=== PATIENT | female | born 1940 | race Caucasian/White ===

== ENCOUNTER 2016-12-10 23:37 | Emergency (ER) | payer MEDICARE, MEDICAID ==
[~2016-12-10 23:37] MED LIST: ABH GEL TP; ACET325C PO; ALBU2.5V4 INHALATION; AMLO2.5T PO; CALC500T9 PO; CHOL40003 PO; CITA20TA11 PO; CLOB15CR3 TOP; CYCL1DRO BOTH_EYES; DEXT1CAP3 PO; DONE10TA5 PO; DPAS20025 PO; FENT1PAT6 TRANSDERM; FLUT9.9S NS; FOLI1TAB18 PO; FRNCD30C PO; GABA-502 PO; GUAI-844 PO; HYDR200T5 PO; HYDR30CR98 RC; KETACONAZOLE CREAM TP; LAMO200T2 PO; LATA2.5D6 BOTH_EYES; LEVO125T6 PO; LOPE1TAB13 PO; MAGN400T23 PO; MICO5POW6 TOPICAL; MINE105O TP; NYST1POW23 MC; PANT20T PO; POLY17PO6 PO; PROP10TA8 PO; SENN-133 PO; SODI126M NS; THIA100T64 PO; TRAM50TA2 PO; TRAZ-115 PO; [UNRECOGNIZED DRUG - OTHER] PO
[2016-12-10 23:38] VITALS: BP 160/75; PULSE 58; O2SAT 91
--- NOTE | 2016-12-10 23:59 | ED.REPORT ---
HPI-Head Prob / Injury Date of Service Dec 10, 2016 ED Provider: Malcom Morgan MD A 76 year old female with a history of cerebral vascular disease, dementia, hypertension, hyperlipidemia and iron-deficient anemia presents to the ED via EMS from a senior care complaining of a headache secondary to a ground level fall that occurred just prior to arrival. Patient remembers being in bed just prior to the fall. She believes she hit her head during the fall. Patient is currently taking dipyridamole. She is currently complaining of right rib pain and back pain that feels similar to her chronic back pain. She denies any neck pain, abdominal pain, change in mental status. Nursing Notes Stated Complaint: GLF Chief Complaint: Head, Face, Neck Trauma Nursing Notes Reviewed: Yes Allergies: Coded Allergies: Oxycodone Terephthalate (Verified Allergy, Severe, RASH, 08/02/16) Sulfa (Sulfonamide Antibiotics) (Verified Allergy, Severe, hives, 08/02/16) acetaminophen (Verified Allergy, Severe, RASH (FROM OXYCODONE-PT TAKING TYLENOL W/O PROBLEMS), 08/02/16) aspirin (Verified Allergy, Severe, RASH, 08/02/16) codeine (Verified Allergy, Severe, rash, hives, 08/02/16) oxycodone (Verified Allergy, Severe, rash, 08/02/16) Erythromycin Lactobionate (Verified Allergy, Unknown, UNKNOWN, 08/02/16) lactose (Verified Allergy, Unknown, UNKNOWN, 08/02/16) morphine (Verified Allergy, Unknown, UNKNOWN, 08/02/16) zolpidem (Verified Allergy, Unknown, UNKNOWN, 08/02/16) hydromorphone HCl (Verified Adverse Reaction, Severe, Hallucinations, 08/02) meperidine (Verified Adverse Reaction, Severe, hallucinations, 08/02/16) mirabegron (Verified Adverse Reaction, Severe, BEHAVIORAL CHANGES, 08/02/16 ) omeprazole (Verified Adverse Reaction, Severe, DIARRHEA, 08/02/16) oxycodone HCl (Verified Adverse Reaction, Severe, makes her high, 08/02/16) simvastatin (Verified Adverse Reaction, Severe, MYALGIAS, 08/02/16) Uncoded Allergies: PHOSPHATE (Allergy, Unknown, UNKNOWN, 08/02/16) Scheduled ([Easy Fiber Powder]) 1 OZ PO PRN ([Ketaconazole Cream]) 1 APPLIC TP BID Amlodipine (Amlodipine) 2.5 Mg Tablet 2.5 MG PO DAILY Cholecalciferol (Vitamin D3) (Vitamin D3) 4,000 Unit Capsule 4,000 UNIT PO DAILY Citalopram (Citalopram) 20 Mg Tablet 20 MG PO DAILY Clobetasol Propionate/Emoll (Clobetasol Emollient 0.05% Crm) 15 Gm Cream..g. 1 APPL TOP BID Cyclosporine (Restasis) 1 Each Droperette 1 EACH AFFECT_EYE BID Dextromethorphan HBr/Quinidine (Nuedexta 20-10 mg Capsule) 1 Each Capsule 1 EACH PO BID Dipyridamole/Aspirin 200-25 mg (Aggrenox 200-25 mg) 1 Each Capsule 1 CAPSULE PO BID Donepezil (Aricept) 10 Mg Tablet 10 MG PO HS Fentanyl 12.5 mcg/hr Patch (Fentanyl 12.5 mcg/hr Patch) 1 Each Patch.td72 1 PATCH TRANSDERM Q3D Fluticasone Propionate (Flonase Allergy Relief) 50 Mcg/Actuation Dracut.susp 9.9 ML NS DAILY Folic Acid (Folic Acid) 1 Mg Tablet 1 MG PO DAILY Gabapentin (Gabapentin) 300 Mg Capsule 300 MG PO BID Hydrocortisone (Hydrocortisone) 2.5 % Cream.appl 30 GM RC BID Hydroxychloroquine Sulfate (Hydroxychloroquine Sulfate) 200 Mg Tablet 200 MG PO DAILY Lamotrigine (Lamotrigine) 200 Mg Tablet 200 MG PO BID Latanoprost (Latanoprost) 2.5 Ml Drops 1 GTT AFFECT_EYE HS Levothyroxine (Levothyroxine) 125 Mcg Tablet 125 MCG PO DAILY Loperamide/Simethicone (Imodium Multi-Symptom Rel Cplt) 1 Each Tablet 1 EACH PO PRN Magnesium Oxide (Mag-Oxide) 400 Mg Tablet 400 MG PO DAILY Magnesium Oxide (Mag-Oxide) 400 Mg Tablet 250 MG PO BID Miconazole (Miconazole) 5 Gm Powder 5 GM MC PRN Mineral Oil/Pet Hy-Phl (Aquaphor) 1 Applic/Gm Oint 1 APPLIC TP PRN Nystatin (Nystatin) 1 Each Powder.ea. 1 EACH MC BID Pantoprazole DR (Protonix) 20 Mg Tablet 20 MG PO DAILY Propranolol HCl (Propranolol HCl) 10 Mg Tablet 10 MG PO BID Sodium Chloride (Saline Nasal Mist) 126 Ml Mist 1 SPRAYS NS PRN Thiamine Mononitrate (Vitamin B-1) 100 Mg Tablet 100 MG PO DAILY Trazodone (Trazodone) 50 Mg Tablet 50 MG PO HS Scheduled PRN ([Abh Gel]) 1 ML TP Q6H PRN PRN PRN FOR DELUSIONS Acetaminophen (Acetaminophen) 325 Mg Capsule 325-650 MG PO Q4H PRN PRN PRN Albuterol Neb Soln (Albuterol Neb Soln) 2.5 Mg/3 Ml Vial.neb 2.5 MG INHALATION Q4H PRN PRN For Shortness of Breath Butalbital/ASA/Caff/Cod 54-766-71-30 mg (Fiorinal/Codeine 53-486-52-30 mg) 1 Each Capsule 1 CAPSULE PO Q4H PRN PRN For Headache Calcium Carbonate (Tums) 500 Mg Tab.chew 500 MG PO Q4H PRN PRN For Dyspepsia or Heartburn Guaifenesin/Dextromethorphan (Ofe-Tussin Dm Syrup) 100 Mg-10 Mg/5 Ml Syrup 10 ML PO Q6H PRN PRN PRN Polyethylene Glycol 3350 (Miralax) 17 Gm Powd.pack 17 GM PO DAILY PRN PRN PRN Sennosides (Senna) 8.6 Mg Tablet 17.2 MG PO DAILY PRN PRN For Constipation Tramadol (Tramadol) 50 Mg Tablet 50 MG PO Q6H PRN PRN For Pain General Time Seen by Provider: 00:01 Chief Complaint Other (Headache) Hx Obtained From: Patient, Daughter Arrived By: Ambulance Onset Occurred: Just prior to arrival Symptom Duration: Since onset Progression Since Onset: Unchanged Caused by: Fall out of bed Quality: Aching Severity: Current: Mild Severity: Maximum: Mild Associated with: Reports: Headache, Denies: Confusion, Disorientation, Mood change, Neck pain Pertinent Negative: Pt denies other symptoms Recent Healthcare: No recent doctor visit, No recent hospitalization Risk-Head Prob / Injury )( IC Bleed Risk Strat Age (<1 yr or >60 yrs) Blood thinners RF Statements: Risk factors reviewed Head CT Imaging Inclusion Criteria: >/= 16 yo age Past Medical History Past Medical History Cerebral vascular disease Iron deficiency anemia Reports: GERD, Hyperlipidemia, Hypertension Reports: Dementia, Depression, Glaucoma Past Surgical History Laminectomy Bladder sling Hemorrhoid surgery Reports: Appendectomy, Cataract surgery, Cholecystectomy, Hysterectomy Family History strong history of CAD, son in his 40's. Smoking History Former Smoker Social History Alcohol Use: Denies alcohol use Drug Use: Denies drug use Other Social History: Good social support, Lives in senior care Ambulatory Status Independent Review of Systems Constitutional: Denies: Chills, Fever GI: Denies: Abdominal pain, Nausea, Vomiting Musculoskeletal: Reports: Back pain (chronic ), Denies: Neck pain Neurologic: Reports: Headache, Denies: Confusion Complete sys rev & neg: except as marked. Respiratory: Denies: Shortness of breath Psychiatric: Denies: Change mental status Physical Exam Initial Vital Signs Vital Signs (First) Date Time Temp Pulse Resp B/P Pulse Ox O2 Delivery O2 Flow Rate FiO2 12/10/16 23:38 36.7 58 160/75 91 Room Air 12/11/16 02:00 18 Initial VS: Reviewed, Vital signs normal Extremities: Vascular intact, Neuro intact, No swelling, No tenderness Skin: Warm, Dry, No cyanosis Psychiatric: Mood/affect normal, Behavior normal, Normal thought content General/Constitutional: Awake, Alert Head / Eyes: Normocephalic, PERRL Trauma - General: Positive: Abrasion (abrasion to the right forehead ) ENT: Atraumatic, Airway patent Neck: Atraumatic, Supple, Non-tender Neurologic: Oriented X3, Speech NL, No motor deficits, No sensory deficits Respiratory / Chest: Atraumatic, Breath sounds NL, Breath sounds = bilat RESPIRATORY/CHEST: Bony tenderness and crepitus to the anterior axillary margin of the right rib Cardiovascular: Heart rate NL, Regular rhythm, Heart sounds NL Upper Extremity / MS: Atraumatic, Neurologic intact, Vascular intact Lower Extremity / Pelvis / MS: Atraumatic, Inspection NL, Non-tender, Neurologic intact, Vascular intact Right Hip: Negative: Tenderness present... Left Hip: Negative: Tenderness present... Abdomen: Atraumatic, Soft, Non-tender Interpretation & Diagnostics Lab Results Interpretation Result Diagram: 12/11/16 0339 12/11/16 0339 Test 12/11/16 03:38 12/11/16 03:39 Hold Urine Received (Received) White Blood Count 7.4th/mm3 (3.8-10.1) Red Blood Count 4.19mil/mm3 (3.90-5.20) Hemoglobin 13.1g/dL (12.0-15.6) Hematocrit 40.1% (35.0-46.0) Mean Corpuscular Volume 95.7fL (81-100) Mean Corpuscular Hemoglobin 31.3pg (27.0-35.0) Mean Corpuscular Hemoglobin Concent 32.7% (32.0-37.0) Red Cell Distribution Width 13.1% (12.3-15.4) Platelet Count 219bil/L (150-400) Neutrophils (%) (Auto) 48.7% (40-74) Lymphocytes (%) (Auto) 33.7% (14-46) Monocytes (%) (Auto) 11.9% (4-12) Eosinophils (%) (Auto) 5.0% (0-5) Basophils (%) (Auto) 0.4% (0-3) Sodium Level 143mEq/L (134-144) Potassium Level 4.1mEq/L (3.5-5.2) Chloride Level 101mEq/L (97-108) Carbon Dioxide Level 27mmol/L (18-29) Blood Urea Nitrogen 7mg/dL (8-27) Creatinine 0.65mg/dL (0.57-1.00) Estimat Glomerular Filtration Rate 127mL/min (>59) Glucose Level 98mg/dL (60-99) Calcium Level 9.0mg/dL (8.5-10.1) Magnesium Level 1.9mg/dL (1.6-2.6) Total Bilirubin 0.5mg/dL (0.0-1.2) Aspartate Amino Transf (AST/SGOT) 21U/L (0-50) Alanine Aminotransferase (ALT/SGPT) 10U/L (0-32) Alkaline Phosphatase 96U/L (25-165) Troponin T 0.010ug/L (0.0-0.011) Total Protein 6.3g/dL (6.4-8.4) Albumin 3.8g/dL (3.4-5.0) Hold Bashir Top Tube Received (Received) Lab Results Interpretation: Urine Dip SP Lamoni 1.005 pH 8 ECG Interpretation ECG Interpretation: Sinus Rhythm Rate 61 Time: 01:53 Interpreted by: ED physician X-Ray Chest Interpretation Chest Xray Interpretation: IMPRESSION: Widened mediastinum compared to previous Interpretation / Wet Read by: Wet read ED physician CT Head Interpretation IMPRESSION: Moderate patchy low density bilaterally in the deep white matter likely due to chronic ischemic small vessel disease. No acute intracranial abnormality. 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 Study type: CT pulm angiogram Interpretation / Wet Read by: Interpret - Radiologist ([facility]) Re-Eval/Medical Decision Med Decision/Clinical Course 76-year-old female who apparently fell out of bed. She was found beside her bed on the floor. She has a small abrasion on her left forehead. CT scan of her head is negative. She also had some pain in her right side so an x-ray was done. This showed a widened mediastinum compared to previous x-rays so full laboratory evaluation and the CT angiogram of the chest were done. The only finding was a nondisplaced fracture of the 10th rib on the right side. Being discharged back to [facility]. Re-Evaluation/Progress #1: Time of Eval: 01:34 Patient Status: Condition improved Re-Evaluation/Progress Note: Patient is rechecked. She is informed of her X-ray results and the treatment plan to obtain a chest CT scan. Re-Evaluation/Progress #2: Time of Eval: 05:48 Patient Status: Condition improved Re-Evaluation/Progress Note: atient is rechecked. She is informed of her reassuing EKG results, lab results and CT results. All of the patient's questions are adressed. She understands and agrees with the treatment plan to discharge. Counseled Regarding: Diagnosis, Lab results, Need for follow-up, When/why to return to ED Discharge & Departure Primary Impression: Fracture of rib of right side Encounter type: initial encounter Rib fracture type: single rib Fracture type: closed Qualified Code: S22.31XA - Fracture of one rib, right side, initial encounter for closed fracture Additional Impression: Fall from ground level Disposition: Home All VS Reviewed: Yes Condition: Stable Patient Instructions: Fall Prevention for Older Adults (GEN), Rib Fracture (ED) Additional Instructions: You have a nondisplaced fracture of the right 10th rib. No other abnormalities are seen on your x-rays and CAT scan. Referrals: Albert Johns MD (PCP) Scribe Attestation Portions of this note were transcribed by Richmond Ryder. I, Dr. Morgan personally performed the history, physical exam and medical decision-making; I reviewed and confirmed the accuracy of the information in the transcribed note. Signed by: Wendy Vidal, 12/11/16 0600. copies to: Albert Jonhs MD, Howard L MD Dec 10, 2016 23:59 RICHMOND RYDER Dec 11, 2016 00:08
[2016-12-11] MEDS ORDERED: 0.9% Sodium Chloride 1,000 ML IV ONE (01:36)
[2016-12-11 02:00] VITALS: BP 150/80; PULSE 60; RESP 18; O2SAT 92
[2016-12-11 03:53] LABS: BASOPHILS % (AUTO) 0.4 % (0-3); MONOCYTES % (AUTO) 11.9 % (4-12); Mean Corpuscular Hemoglobin 31.3 pg (27.0-35.0); Mean Corpuscular Volume 95.7 fL (81-100); NEUTROPHILS % (AUTO) 48.7 % (40-74); Platelet Count 219 bil/L (150-400)
[2016-12-11 04:42] LABS: TROPONIN T 0.01 ug/L (0.0-0.011)
[2016-12-11 04:47] LABS: Magnesium 1.9 mg/dL (1.6-2.6)
[2016-12-11 05:17] VITALS: BP 138/55; PULSE 66; RESP 20; O2SAT 93
[2016-12-11] MEDS ORDERED: NYST15PO5 TP (06:42)
--- NOTE | 2016-12-11 07:38 | DRSVH ---
PROCEDURE: CT ANGIOGRAPHY OF THE CHEST WITH AND WITHOUT CONTRAST ([id number]) INDICATIONS: syncope, fall TECHNIQUE: After the administration of intravenous contrast, 3 mm thick sections acquired from the lung apices t o the posterior lung bases. 3-dimensional maximum intensity projection (MIP) oblique sagittal reform ats were then acquired parallel to the aortic arch, and/or 3-dimensional volume rendering reformats. For radiation dose reduction, the following was used: automated exposure control. COMPARISON: None. FINDINGS: Image quality: Excellent. Aorta: Aorta and great vessels are normal in size. No mural irregularity or contrast extravasation to suggest aortic injury. Mild atheromatous calcifications are present within the descending thoracic aorta. Mediastinum: No hematomas. Heart size is normal. No pericardial effusion. No mediastinal or hilar adenopathy by size criteria. Central pulmonary arteries are normal in size. Esophagus is normal in caliber. There is a small hiatal hernia. Lungs and pleura: Mild atelectasis is present at the dependent lung bases bilaterally. Trace airspace opacities are present within the anterior right upper lobe. Bones and chest wall: No axillary adenopathy by size criteria. Thyroid gland is not visualized. The re is a minimally displaced right lateral 10th rib fracture. No suspicious bony lesions. No vertebral body compression fractures. Abdomen: There is likely extrinsic compression of the superior aspect of the origin of the celiac ax is with resultant moderate stenosis. This finding can be associated with median arcuate ligament synd hazel. Visualized upper abdominal solid organs and bowel loops appear otherwise normal. IMPRESSION: 1. No thoracic aortic aneurysm, dissection, or injury. 2. Minimally displaced lateral right 10th rib fracture. These findings are concordant with the overnight interpretation. Dictated by: Johanna Llamas M.D. on 12/11/2016 at 7:23 Approved by: Johanna Llamas M.D. on 12/11/2016 at 7:36
--- NOTE | 2016-12-11 07:46 | DRSVH ---
PROCEDURE: CT BRAIN WITHOUT CONTRAST ([id number]) INDICATIONS: fall, head trauma TECHNIQUE: Noncontrast 4.5 mm thick angled axial sections acquired from the foramen magnum to the vertex, with c oronal reformats. COMPARISON: [facility], CT, BRAIN W/O CONTRAST, 06/16/2013, 14:38. FINDINGS: Image quality: Excellent. CSF spaces: Basal cisterns are patent. No extra-axial fluid collections. The ventricles are symmet mendy in size and shape. Brain: No intracranial bleeds or masses. There is moderate cerebral volume loss for age, with resul tant ventricular and sulcal prominence. There are periventricular and deep white matter chronic smal l vessel ischemic changes. There are old bilateral basal ganglia lacunar infarcts. There is intracran ial internal carotid artery atherosclerosis. Skull and face: Calvarium and visualized facial bones appear intact, without suspicious lesions. Sinuses: Visualized sinuses and mastoids are clear. IMPRESSION: 1. No acute intracranial findings. 2. Moderate findings likely associated with chronic microvascular ischemic changes and old basal gang greg infarcts. These findings are concordant with the overnight interpretation. Dictated by: Johanna Llamas M.D. on 12/11/2016 at 7:41 Approved by: Johanna Llamas M.D. on 12/11/2016 at 7:44
--- NOTE | 2016-12-11 07:55 | DRSVH ---
PROCEDURE: X-RAY RIGHT RIBS INCLUDEING PA CHEST, MINUMUM THREE VIEWS ([id number]) INDICATIONS: fall, right rib pain and crepitus TECHNIQUE: 3 views of the right ribs were acquired, along with a single view chest. COMPARISON: None. FINDINGS: Surgical changes and devices: Multiple surgical clips are projected over the right upper quadrant. Bones and chest wall: There is a minimally displaced lateral right 10th rib fracture. Lungs and pleura: No pleural effusions or pneumothorax. Lungs appear clear. Mediastinum: Mediastinal contours appear normal. Heart size is normal. IMPRESSION: Minimally displaced lateral right 10th rib fracture. No pneumothorax or pleural effusion. Dictated by: Johanna Llamas M.D. on 12/11/2016 at 7:44 Approved by: Johanna Llamas M.D. on 12/11/2016 at 7:53
[2016-12-11 08:07] VITALS: BP 157/63; PULSE 60; RESP 10; O2SAT 95
--- NOTE | 2016-12-20 10:08 | PCM.ANEPRE ---
Anesthesia Pre-Op Review Reason for Review: Recent rib fracture Anesthesia Recommendations: Proceed with Procedure Additional Comments Please see prior consultation and anesthesia record from 08/2016. She underwent a GA for the same procedure as scheduled for tomorrow. Evaluation on day or surgery with anesthesiologist regarding pain intensity from rib fracture. I assume that the patient and surgeon have spoken regarding said rib fracture and both feel comfortable proceeding. Sebas Fragoso MD Dec 20, 2016 10:08
[2016-12-21] MEDS ORDERED: Lactated Ringer's 1,000 ML IV SCH (05:00)
== END 2016-12-11 05:57 | disposition home or self-care (01) ==
LOC: SED 23:37
DX: S22.31XA Fracture of one rib, right side, initial encounter for closed fracture (principal); W06.XXXA Fall from bed, initial encounter; Y93.89 Activity, other specified; Y99.8 Other external cause status; Y92.122 Bedroom in nursing home as the place of occurrence of the external cause; I10 Essential (primary) hypertension; K21.9 Gastro-esophageal reflux disease without esophagitis; E78.5 Hyperlipidemia, unspecified; D50.9 Iron deficiency anemia, unspecified; Z87.891 Personal history of nicotine dependence; Z86.73 Personal history of transient ischemic attack (TIA), and cerebral infarction without residual deficits; Z79.51 Long term (current) use of inhaled steroids; Z88.6 Allergy status to analgesic agent; Z88.2 Allergy status to sulfonamides; Z88.5 Allergy status to narcotic agent; Z88.1 Allergy status to other antibiotic agents; Z88.8 Allergy status to other drugs, medicaments and biological substances
CPT/HCPCS: 36415; 70450; 71101; 71275; 80053; 83735; 84484; 85025; 93005; 96360; 99285; J7030; Q9967

== ENCOUNTER 2016-12-21 05:40 | Day surgery (SDC) | payer MEDICARE, MEDICAID ==
[2016-12-21] VITALS (8 sets, daily range): BP systolic 138–148; BP diastolic 54–118; PULSE 56–58; RESP 9–19; O2SAT 97–100
[~2016-12-21] VITALS: Ht 162.6 cm; Wt 75.5 kg
[~2016-12-21 05:40] MED LIST changes: +Botulinum Toxin Type-A Inj 200 unit Inj XX ONE; +Lactated Ringer's 1,000 ML IV SCH; +NYST15PO5 TP
[2016-12-21] MEDS ORDERED: Ondansetron 2 mg/mL 2 mL Inj ONE (05:41)
[2016-12-21] MEDS ORDERED: Propofol 10,000 mCg/mL 20 mL Inj ONE (05:41)
[2016-12-21] MEDS ORDERED: fentaNYL-PF 50 mCg/mL 2 mL Inj ONE (05:41)
[2016-12-21] MEDS ORDERED: Dexamethasone 4 mg/mL Inj ONE (05:41)
[2016-12-21] MEDS ORDERED: Botulinum Toxin Type-A 100 unit Inj IM ONE (06:00)
[2016-12-21] MEDS ORDERED: Lactated Ringer's 1,000 ML IV ONE ×3 (08:01→09:18)
[2016-12-21] MEDS: CeFAZolin Inj 2 GM in IV Premix 1 EACH IV ONE ×2 (08:02→08:24)
[2016-12-21] MEDS ORDERED: Lactated Ringer's 500 ML IV PRN (08:33)
[2016-12-21] MEDS ORDERED: Lactated Ringer's 1,000 ML IV SCH (08:33)
[2016-12-21] MEDS ORDERED: fentaNYL-PF 50 mCg/mL 2 mL Inj IVPUSH PRN (08:35)
[2016-12-21] MEDS ORDERED: Atropine 0.4 mg/mL Inj IVPUSH PRN (08:35)
[2016-12-21] MEDS ORDERED: EPHEDrine Sulfate 50 mg/mL Inj IVPUSH PRN (08:35)
[2016-12-21] MEDS ORDERED: Ondansetron 2 mg/mL 2 mL Inj IVPUSH PRN (08:35)
[2016-12-21] MEDS ORDERED: Dexamethasone 4 mg/mL Inj IVPUSH PRN (08:35)
[2016-12-21] MEDS ORDERED: hydrALAZINE 20 mg/mL Inj IVPUSH PRN (08:35)
[2016-12-21] MEDS ORDERED: Labetalol 5 mg/mL 4 mL Inj IV PRN (08:35)
[2016-12-21] MEDS ORDERED: Phenylephrine 10,000 mCg/mL Inj IVPUSH PRN (08:35)
[2016-12-21] MEDS ORDERED: Botulinum Toxin Type-A 100 unit Inj XX ONE (08:44)
--- NOTE | 2016-12-21 08:51 | PCM.HPANE ---
Patient Data Surgeon Admitting Provider: Attending Provider:Elvia Jovel MD Primary Care Physician:Albert Johns MD Other Provider:[place] [facility] Reason for Visit Urge Incontinence Ht/WT & BMI Height (Feet): 5 Height (Inches): 4.00 Weight (Kilograms): 75.500 Body Mass Index 28.00 Allergies Coded Allergies: Oxycodone Terephthalate (Verified Allergy, Severe, RASH, 12/16/16) Sulfa (Sulfonamide Antibiotics) (Verified Allergy, Severe, hives, 12/16/16) acetaminophen (Verified Allergy, Severe, RASH (FROM OXYCODONE-PT TAKING TYLENOL W/O PROBLEMS), 12/16/16) aspirin (Verified Allergy, Severe, RASH, 12/16/16) codeine (Verified Allergy, Severe, rash, hives, 12/16/16) oxycodone (Verified Allergy, Severe, rash, 12/16/16) Erythromycin Lactobionate (Verified Allergy, Unknown, UNKNOWN, 12/16/16) lactose (Verified Allergy, Unknown, UNKNOWN, 12/16/16) morphine (Verified Allergy, Unknown, UNKNOWN, 12/16/16) zolpidem (Verified Allergy, Unknown, UNKNOWN, 12/16/16) hydromorphone HCl (Verified Adverse Reaction, Severe, Hallucinations, 12/16) meperidine (Verified Adverse Reaction, Severe, hallucinations, 12/16/16) mirabegron (Verified Adverse Reaction, Severe, BEHAVIORAL CHANGES, 12/16/16 ) omeprazole (Verified Adverse Reaction, Severe, DIARRHEA, 12/16/16) oxycodone HCl (Verified Adverse Reaction, Severe, makes her high, 12/16/16) simvastatin (Verified Adverse Reaction, Severe, MYALGIAS, 12/16/16) Uncoded Allergies: PHOSPHATE (Allergy, Unknown, UNKNOWN, 08/02/16) Past Anesthesia History Anesthesia History: Denies:: Abnormal Airway, Anesthesia Reactions, Difficult Intubation, Fam Anesthesia Reaction, Fam Malignant Hypertherm, Malignant Hyperthermia Diabetes History Hx Diabetes?: No MRSA MRSA: No Medications Hypertension Medication: Yes (AMLODIPINE) Home Meds Incl Beta Minh: Yes (propranolol) Active Scripts Nystatin 15 Gm Hxnzgb51 Gm TP BID #1 POWDER Prov:Malcom Morgan MD 12/11/16 Reported Medications Cholecalciferol (Vitamin D3) (Vitamin D3)4,000 Unit Capsule4,000 Unit PO DAILY 08/02/16 Acetaminophen 325 Mg Mdynbas299-958 Mg PO Q4H PRN PRN 08/02/16 Trazodone 50 Mg Ziyusx75 Mg PO HS Ref 0 08/02/16 Tramadol 50 Mg Qbwqqd88 Mg PO Q6H PRN For Pain Ref 0 08/02/16 Thiamine Mononitrate (Vitamin B-1)100 Mg Mmvfgm502 Mg PO DAILY 08/02/16 Sennosides (Senna)8.6 Mg Wgrnzq69.2 Mg PO DAILY PRN For Constipation 08/02/16 Cyclosporine (Restasis)1 Each Droperette1 Each AFFECT_EYE BID 08/02/[address] (Protonix)20 Mg Sbwzdj51 Mg PO DAILY Ref 0 08/02/16 Propranolol HCl 10 Mg Fexscv61 Mg PO BID 90 Days Ref 0 08/02/16 Dextromethorphan HBr/Quinidine (Nuedexta 20-10 mg Capsule)1 Each Capsule1 Each PO BID 08/02/16 Sodium Chloride (Saline Nasal Mist)126 Ml Mist1 Sprays NS PRN 08/02/16 Polyethylene Glycol 3350 (Miralax)17 Gm Powd.pack17 Gm PO DAILY PRN PRN 08/02/16 Miconazole 5 Gm Powder5 Gm MC PRN 08/02/16 Magnesium Oxide (Mag-Oxide)400 Mg Ssomnm138 Mg PO DAILY 08/02/16 Levothyroxine 125 Mcg Uitdfh062 Mcg PO DAILY For Thyroid Replacement Ref 0 08/02/16 Latanoprost 2.5 Ml Drops1 Gtt AFFECT_EYE HS #1 BOTTLE 08/02/16 Lamotrigine 200 Mg [place]242 Mg PO BID Ref 0 08/02/16 [Ketaconazole Cream] No Conflict Check1 Applic TP BID 08/02/16 Loperamide/Simethicone (Imodium Multi-Symptom Rel Cplt)1 Each Tablet1 Each PO PRN 08/02/16 Hydroxychloroquine Sulfate 200 Mg Ejrfcs000 Mg PO DAILY #30 TABLET Ref 0 08/02/16 Hydrocortisone 2.5 % Cream.appl30 Gm RC BID 08/02/16 Guaifenesin/Dextromethorphan (Ofe-Tussin Dm Syrup)100 Mg-10 Mg/5 Ml Syrup10 Ml PO Q6H PRN PRN 08/02/16 Gabapentin 300 Mg Ixmrgyq932 Mg PO BID Ref 0 08/02/16 Folic Acid 1 Mg Tablet1 Mg PO DAILY 30 Days 08/02/16 Fluticasone Propionate (Flonase Allergy Relief)50 Mcg/Actuation [place].susp9.9 Ml NS DAILY 08/02/16 Fentanyl 12.5 mcg/hr Patch 1 Each Patch.td721 Patch TRANSDERM Q3D Ref 0 08/02/16 [Easy Fiber Powder] No Conflict Check1 Oz PO PRN 08/02/16 [Abh Gel] No Conflict Check1 Ml TP Q6H PRN PRN FOR DELUSIONS 08/02/16 Clobetasol Propionate/Emoll (Clobetasol Emollient 0.05% Crm)15 Gm Cream..g.1 Appl TOP BID #1 TUBE 08/02/16 Citalopram 20 Mg Ubviyo78 Mg PO DAILY Ref 0 08/02/16 Dipyridamole/Aspirin 200-25 mg (Aggrenox 200-25 mg)1 Each Capsule1 Capsule PO BID Ref 0 08/02/16 Discontinued Reported Medications Calcium Carbonate (Tums)500 Mg Tab.swor033 Mg PO Q4H PRN For Dyspepsia or Heartburn 30 Days 08/02/16 Nystatin 1 Each Powder.ea.1 Each MC BID 08/02/16 Magnesium Oxide (Mag-Oxide)400 Mg Smbuzi443 Mg PO BID 08/02/16 Butalbital/ASA/Caff/Cod 00-302-19-30 mg (Fiorinal/Codeine 34-017-37-30 mg)1 Each Capsule1 Capsule PO Q4H PRN For Headache Ref 0 08/02/16 Donepezil (Aricept)10 Mg Gxqvkz46 Mg PO HS Ref 0 08/02/16 Mineral Oil/Pet Hy-Phl (Aquaphor)1 Applic/Gm Oint1 Applic TP PRN 08/02/16 Amlodipine 2.5 Mg Tablet2.5 Mg PO DAILY Ref 0 08/02/16 Albuterol Neb Soln 2.5 Mg/3 Ml Vial.neb2.5 Mg INHALATION Q4H PRN For Shortness of Breath Ref 0 08/02/16 History History of ENT Problems?: Yes HEENT History: Positive for:: Cataracts (hx of extractions) Hearing Problem Sinus Problem (sinusitis) Denies:: Abnormal Airway Difficult Intubation Dysphagia TMJ Denture Type: Full- Upper Hx of Heart Problems?: Yes Cardiovascular History: Positive for:: 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 (UNCHANGED FROM ECHO IN 2010)) Cardiac Surgery (heart cath 06/2013 wnl) Chest Pain (09/2016 ED VISIT-DEEMED TO BE MUSCULO-SKELETAL) Hypertension (HYPERLIPIDEMIA) Valvular Heart Disease (MILD MR) Denies:: AICD Atrial Fibrillation Congestive Heart Failure Edema Heart Murmur (ECHO 06/2013 EF 60-65%) Irregular Heartbeat Pacemaker Rheumatic Fever Thrombophlebitis Other Cardiac History: HX IRON-DEFICIENCY ANEMIA Hx of Respiratory Problem?: Yes Respiratory History: Positive for:: Dyspnea (GALEANA) Oxygen Administration (2L @ NOC PRN) Use of C-PAP Machine (GUILHERME+ ?CPAP SLEEP STUDY 11/2012) Denies:: Asthma COPD Chest Surgery Emphysema Hemoptysis Pneumonia Tuberculosis Hx Neurologic Problems?: Yes Neurological History: Positive for:: CVA (LT SIDED RESIDUAL) Dementia (EARLY) Dizziness Headaches Seizures (LAST APPROX 2YRS AGO) Denies:: Alzheimer's Disease Parkinson's Disease Other Neurological Pertinent: RLS,INSOMNIA Hx of GI Problems?: Yes Gastrointestinal History: Positive for:: Gall Bladder Disease (S/P GABRIELA) Gastroesphageal Reflux Heartburn Rectal Bleeding (S/P HEMORRHOIDECTOMY) Denies:: Cirrhosis Diverticulitis Gastrointestinal Bleeding Hepatitis Hiatal Hernia Other GI Pertinent History: S/P APPY Hx of Problems?: Yes Genitourinary History: Positive for:: Urinary Tract Infection (HX OF) Denies:: HX of Hemodialysis Kidney Stones HX of Peritoneal Dialysis: No Other Pertinent History: S/P BLADDER SLING Female Hx: Positive for:: Problems with Breasts? (S/P BREAST REDUCTION) Denies:: Currently Endometriosis Pelvic Inflammatory Skin History: Positive for:: History Skin Disorders? (RASHES) Denies:: Pressure Ulcers Hx Musculoskeletal Problems?: Yes Musculoskeletal History: Positive for:: Degenerative Joint Fibromyalgia Musculoskeletal Trauma (GLF 12/10/2016 MINIMALLY DISPLACED RT 10TH RIB FX) Denies:: Back Injury (C/OF CHRONIC PAIN) Joint Replacement Systemic Lupus Hx of Psycho/Social Problems?: Yes Psycho Social History: Positive for:: Anxiety Hx Depression Denies:: Bipolar Disorder Suicide Attempt Hx Surgeries?: Yes (BLADDERSLING,BLADDER BOTOX,LAMI,APPY,GABRIELA,CATARACT, HEMORRHOIDS,HEART CATH,) Hx Any Other Health Problems?: Yes Other History: Positive for:: Thyroid Disease Denies:: Cancer Endocrine Disease Hospitalization History Blood Transfusions: Denies:: Blood Transfuse Reaction Blood Transfusions Hx Diabetes: No Hx Alcohol Use: NoHx Substance Use: No Smoking Status: Former Smoker Have You Smoked inLast 12 mo: No Stop/Bang S-Snoring: Do You Snore Loudly: Yes T-Tired: feel tired, fatigued: Yes O-Obsered: Observed not breath: Yes P-Blood Pressure: treated: Yes B- Body Mass Index > 35 kg/m2: No A- Age over 50: Yes N- Neck Large Circumference: No G- Gender Male: No GUILHERME Total Score: 5 Risk Assessment Category Category 1A: Patient has history of documented sleep apnea, and HAS NOT received any narcotic, sedative or anesthesia administration during this stay. Category 1B: Patient has history of documented sleep apnea, and HAS received any narcotic , sedative or anesthesia administration during this stay Category 2: Patient has SUSPECTED Obstructive Sleep Apnea, and HAS received any narcotic , sedative or anesthesia administration during this stay. Category 3: Patient has SUSPECTED Obstructive Sleep Apnea and HAS NOT received narcotic, sedative or anesthesia administration during this stay. Category 4: Outpatient in Procedural Areas with known sleep apnea or who screen positive for High Risk via the STOP/BANG questionnaire. Exam Exam Vital Signs Vital Signs Date Time Temp Pulse Resp B/P Pulse Ox O2 Delivery O2 Flow Rate FiO2 12/21/16 06:09 35.9 56 19 144/118 97 Room Air General Appearance: Alert, Oriented X3, Cooperative, No Acute Distress HEENT/AIRWAY: MP 2, Neck Movement (FROM), Mouth Opening (3 FBMO) Lungs: Clear to Auscultation, Normal Air Movement Heart: Exam Unremarkable, Regular Rate/Rhythm, No Murmurs/Rubs/Gallops Meds/Labs/Diagnostics Admission Meds Current Medications Cefazolin Sodium/ Dextrose 2 gm/ Premix 50 ml @ 100 mls/hr PREOP ONCE IV Last administered on 12/21/16t 08:02; Start 12/21/16 at 06:00; Stop 12/21/16 at 06:29; Status DC Lactated Ringer's (Lr) 1,000 ml @ STK-MED ONCE IV Last administered on 12/21t 08:01; Start 12/21/16 at 08:01; Stop 12/21/16 at 08:07; Status DC Plan Impression Patient chart reviewed, patient interviewed and anesthestic plan with risks, benefits, and alternatives discussed, and informed consent obtained. NPO Status: 12/20@1999, water w moring pills ASA Physical Status: ASA3 Severe Disease (GUILHERME) Anesthetic Plan: GA Bene/Risks/Altern/Consents: Yes HP Complete Prior to Induction: Yes Sebas Hinds MD Dec 21, 2016 08:25
[2016-12-21] MEDS ORDERED: Ondansetron 8 mg ODT Tablet PO PRN (09:00)
[2016-12-21] MEDS ORDERED: HYDROcodone-APAP 5-325 mg Tablet PO PRN (09:00)
--- NOTE | 2016-12-21 10:22 | PCM.ANEP1 ---
Post Anesthesia Phase 1 PACU Phase 1 Assessment Vital Signs Vital Signs Date Time Temp Pulse Resp B/P Pulse Ox O2 Delivery O2 Flow Rate FiO2 12/21/16 09:32 36.2 57 14 143/57 99 Nasal Cannula 2 12/21/16 09:20 56 9 140/54 99 Nasal Cannula 2 12/21/16 09:15 36.0 56 10 148/58 98 Nasal Cannula 2 12/21/16 09:10 58 11 141/57 97 Nasal Cannula 2 12/21/16 09:05 57 13 141/54 97 Room Air 12/21/16 09:00 58 11 138/58 99 Room Air 12/21/16 08:55 36.8 57 12 142/63 100 Simple Mask 8 12/21/16 06:09 35.9 56 19 144/118 97 Room Air Anesthetic Administered: GA Level of Alertness: Awake, talking MCCIAN's with Equal Strength: Yes Pain: No Nausea or Vomiting: No Oxygen Delivery: Simple Mask Lungs: Clear to Auscultation, Normal Air Movement Dermatome Level: Full Sensation Sebas Hinds MD Dec 21, 2016 10:22
--- NOTE | 2016-12-21 10:22 | PCM.ANEP2 ---
Post Anesthesia Evaluation ASA/CMS Post Anesthesia VS in Patient's Normal Range?: Yes Resp Stable; Airway Patent?: Yes CV Function & Hydration Stable: Yes Mental Status Recovered?: Yes Pain control Satisfactory?: Yes N/V Control Satisfactory?: Yes Sebas Hinds MD Dec 21, 2016 10:22
--- NOTE | 2016-12-21 13:35 | OP ---
[address] [address] OPERATIVE REPORT PATIENT: ROBB CARLSON : 1940 MR#: [id number] ADMIT: 12/21/2016 JOB ID: [id number] DATE OF SURGERY: 12/21/2016 SURGEON: Elvia Jovel MD PREOPERATIVE DIAGNOSIS(ES): Urgency incontinence. POSTOPERATIVE DIAGNOSIS(ES): Urgency incontinence. PROCEDURE: Cystoscopy and Botox injection. ANESTHESIA: General anesthetic, Dr. Hinds. DESCRIPTION OF PROCEDURE: Under general anesthetic, the patient was placed in the lithotomy position. Genitalia prepped and draped in a sterile manner. A 22-Danish cystoscope was introduced through a normal urethra. Ureteral orifices were normal in position and appearance. Using a sidekick needle, 100 units of Botox was injected 5 units at that time into 20 sites on the posterior wall of the bladder, between the ureters and above the interureteric ridge. There was a minor amount of bleeding from the injections. The patient tolerated the procedure well, left the operating room in good condition.
== END 2016-12-21 23:59 | disposition home or self-care (01) ==
LOC: SAS 05:40
PROVIDERS: ATTEND Urology
DX: N39.41 Urge incontinence (principal); I10 Essential (primary) hypertension; I65.21 Occlusion and stenosis of right carotid artery; E03.9 Hypothyroidism, unspecified; K21.9 Gastro-esophageal reflux disease without esophagitis; G47.33 Obstructive sleep apnea (adult) (pediatric); F41.9 Anxiety disorder, unspecified; F32.9 Major depressive disorder, single episode, unspecified; M79.7 Fibromyalgia; G25.81 Restless legs syndrome; Z87.891 Personal history of nicotine dependence; Z87.440 Personal history of urinary (tract) infections; Z87.442 Personal history of urinary calculi
CPT/HCPCS: 52287; J0585; J0690; J1100; J2405; J3010; J7120

== ENCOUNTER 2017-01-09 22:32 | Inpatient (IN) | payer MEDICARE, MEDICAID ==
[~2017-01-09] VITALS: Ht 170.2 cm; Wt 77.5 kg
[~2017-01-09 22:32] MED LIST changes: -ALBU2.5V4 INHALATION; -AMLO2.5T PO; -Botulinum Toxin Type-A Inj 200 unit Inj XX ONE; -CALC500T9 PO; -DONE10TA5 PO; -FRNCD30C PO; -Lactated Ringer's 1,000 ML IV SCH; -MINE105O TP; -NYST1POW23 MC
[2017-01-09 22:44] VITALS: BP 127/63; PULSE 68; RESP 20; O2SAT 93
[2017-01-09] MEDS ORDERED: Albuterol-Ipratropium 3 mL Inhalation Solution NEB ONE (22:55)
--- NOTE | 2017-01-09 22:57 | ED.REPORT ---
HPI-Altered Mental Status Date of Service Jan 09, 2017 ED Provider: Jennifer Tran MD A 76 year old female with a history of UTI, dysphagia, anemia, hypothyroidism, hyperlipidemia, and COPD is brought to the ED via EMS due to altered mental status and cough. The pt resides at [facility] and was noted by staff to have episodes of hypoxia one week ago. A chest x-ray indicated pneumonia and labs showed a UTI. The pt was subsequently placed on Levaquin. Staff noticed altered mental status today and the pt was sent to the ED. The pt has a history of confusion associated with UTI, and is DNR with limited intervention. History is limited by pt condition. Nursing Notes Stated Complaint: CONFUSION Chief Complaint: Neuro Symptoms/ Deficits Nursing Notes Reviewed: Yes Allergies: Coded Allergies: Oxycodone Terephthalate (Verified Allergy, Severe, RASH, 12/16/16) Sulfa (Sulfonamide Antibiotics) (Verified Allergy, Severe, hives, 12/16/16) acetaminophen (Verified Allergy, Severe, RASH (FROM OXYCODONE-PT TAKING TYLENOL W/O PROBLEMS), 12/16/16) aspirin (Verified Allergy, Severe, RASH, 12/16/16) codeine (Verified Allergy, Severe, rash, hives, 12/16/16) oxycodone (Verified Allergy, Severe, rash, 12/16/16) Erythromycin Lactobionate (Verified Allergy, Unknown, UNKNOWN, 12/16/16) lactose (Verified Allergy, Unknown, UNKNOWN, 12/16/16) morphine (Verified Allergy, Unknown, UNKNOWN, 12/16/16) zolpidem (Verified Allergy, Unknown, UNKNOWN, 12/16/16) hydromorphone HCl (Verified Adverse Reaction, Severe, Hallucinations, 12/16) meperidine (Verified Adverse Reaction, Severe, hallucinations, 12/16/16) mirabegron (Verified Adverse Reaction, Severe, BEHAVIORAL CHANGES, 12/16/16 ) omeprazole (Verified Adverse Reaction, Severe, DIARRHEA, 12/16/16) oxycodone HCl (Verified Adverse Reaction, Severe, makes her high, 12/16/16) simvastatin (Verified Adverse Reaction, Severe, MYALGIAS, 12/16/16) Uncoded Allergies: PHOSPHATE (Allergy, Unknown, UNKNOWN, 08/02/16) Scheduled ([Easy Fiber Powder]) 1 OZ PO PRN ([Ketaconazole Cream]) 1 APPLIC TP BID Cholecalciferol (Vitamin D3) (Vitamin D3) 4,000 Unit Capsule 4,000 UNIT PO DAILY Citalopram (Citalopram) 20 Mg Tablet 20 MG PO DAILY Clobetasol Propionate/Emoll (Clobetasol Emollient 0.05% Crm) 15 Gm Cream..g. 1 APPL TOP BID Cyclosporine (Restasis) 1 Each Droperette 1 EACH AFFECT_EYE BID Dextromethorphan HBr/Quinidine (Nuedexta 20-10 mg Capsule) 1 Each Capsule 1 EACH PO BID Dipyridamole/Aspirin 200-25 mg (Aggrenox 200-25 mg) 1 Each Capsule 1 CAPSULE PO BID Fentanyl 12.5 mcg/hr Patch (Fentanyl 12.5 mcg/hr Patch) 1 Each Patch.td72 1 PATCH TRANSDERM Q3D Fluticasone Propionate (Flonase Allergy Relief) 50 Mcg/Actuation [place].susp 9.9 ML NS DAILY Folic Acid (Folic Acid) 1 Mg Tablet 1 MG PO DAILY Gabapentin (Gabapentin) 300 Mg Capsule 300 MG PO BID Hydrocortisone (Hydrocortisone) 2.5 % Cream.appl 30 GM RC BID Hydroxychloroquine Sulfate (Hydroxychloroquine Sulfate) 200 Mg Tablet 200 MG PO DAILY Lamotrigine (Lamotrigine) 200 Mg Tablet 200 MG PO BID Latanoprost (Latanoprost) 2.5 Ml Drops 1 GTT AFFECT_EYE HS Levothyroxine (Levothyroxine) 125 Mcg Tablet 125 MCG PO DAILY Loperamide/Simethicone (Imodium Multi-Symptom Rel Cplt) 1 Each Tablet 1 EACH PO PRN Magnesium Oxide (Mag-Oxide) 400 Mg Tablet 400 MG PO DAILY Miconazole (Miconazole) 5 Gm Powder 5 GM MC PRN Nystatin (Nystatin) 15 Gm Powder 15 GM TP BID Pantoprazole DR (Protonix) 20 Mg Tablet 20 MG PO DAILY Propranolol HCl (Propranolol HCl) 10 Mg Tablet 10 MG PO BID Sodium Chloride (Saline Nasal Mist) 126 Ml Mist 1 SPRAYS NS PRN Thiamine Mononitrate (Vitamin B-1) 100 Mg Tablet 100 MG PO DAILY Trazodone (Trazodone) 50 Mg Tablet 50 MG PO HS Scheduled PRN ([Abh Gel]) 1 ML TP Q6H PRN PRN PRN FOR DELUSIONS Acetaminophen (Acetaminophen) 325 Mg Capsule 325-650 MG PO Q4H PRN PRN PRN Guaifenesin/Dextromethorphan (Ofe-Tussin Dm Syrup) 100 Mg-10 Mg/5 Ml Syrup 10 ML PO Q6H PRN PRN PRN Polyethylene Glycol 3350 (Miralax) 17 Gm Powd.pack 17 GM PO DAILY PRN PRN PRN Sennosides (Senna) 8.6 Mg Tablet 17.2 MG PO DAILY PRN PRN For Constipation Tramadol (Tramadol) 50 Mg Tablet 50 MG PO Q6H PRN PRN For Pain General Time Seen by MD: 22:42 Chief Complaint Other (Altered mental status) Hx Obtained From: EMS Arrived By: Ambulance Sudden in Onset?: No Symptom Duration: Since onset Recent Healthcare: No recent hospitalization, Recent doctor visit Similar Sx Previous: No Past Medical History Past Medical History Cerebral vascular disease Iron deficiency anemia Reports: GERD, Hyperlipidemia, Hypertension Reports: Dementia, Depression, Glaucoma Past Surgical History Laminectomy Bladder sling Hemorrhoid surgery Reports: Appendectomy, Cataract surgery, Cholecystectomy, Hysterectomy Family History strong history of CAD, son in his 40's. Smoking History Former Smoker Social History Alcohol Use: Denies alcohol use Drug Use: Denies drug use Other Social History: Good social support, Lives in longterm Ambulatory Status Independent Review of Systems Unable to Obtain ROS Patient condition Physical Exam Initial Vital Signs Vital Signs (First) Date Time Temp Pulse Resp B/P Pulse Ox O2 Delivery O2 Flow Rate FiO2 01/09/17 22:44 37.2 68 20 127/63 93 Nasal Cannula 4 Initial VS: Reviewed General/Constitutional: Awake following commands Head / Eyes: Atraumatic, Normocephalic, PERRL, EOMI Neck: Atraumatic, Supple, Full range of motion Respiratory / Chest: Atraumatic, Breath sounds = bilat terribly coarse bilaterally with expiratory wheeze and rhonchi Cardiovascular: Heart rate NL, Regular rhythm, Heart sounds NL Neurologic: No sensory deficits oriented to person ENT: Atraumatic, Airway patent, Mucous membranes moist Abdomen: Atraumatic Back: Atraumatic, Full range of motion Skin: Atraumatic, Color NL, No rash, Warm, Dry confused Upper Extremity / MS: Atraumatic, Full range of motion Lower Extremity / Pelvis / MS: Atraumatic, Full range of motion Interpretation & Diagnostics Lab Results Interpretation Result Diagram: 01/09/17 2355 01/09/17 2355 Test 01/09/17 23:55 01/10/17 00:30 White Blood Count 9.8th/mm3 (3.8-10.1) Red Blood Count 3.49mil/mm3 (3.90-5.20) Hemoglobin 10.9g/dL (12.0-15.6) Hematocrit 34.3% (35.0-46.0) Mean Corpuscular Volume 98.3fL (81-100) Mean Corpuscular Hemoglobin 31.2pg (27.0-35.0) Mean Corpuscular Hemoglobin Concent 31.8% (32.0-37.0) Red Cell Distribution Width 14.1% (12.3-15.4) Platelet Count 147bil/L (150-400) Neutrophils (%) (Auto) 81.6% (40-74) Lymphocytes (%) (Auto) 9.0% (14-46) Monocytes (%) (Auto) 9.0% (4-12) Eosinophils (%) (Auto) 0.1% (0-5) Basophils (%) (Auto) 0.1% (0-3) Prothrombin Time 11.6sec (8.1-12.5) Prothromb Time International Ratio 1.08ratio Activated Partial Thromboplast Time 37.1sec (22.8-33.0) Sodium Level 141mEq/L (134-144) Potassium Level 3.9mEq/L (3.5-5.2) Chloride Level 102mEq/L (97-108) Carbon Dioxide Level 23mmol/L (18-29) Blood Urea Nitrogen 21mg/dL (8-27) Creatinine 0.84mg/dL (0.57-1.00) Estimat Glomerular Filtration Rate 94mL/min (>59) Glucose Level 106mg/dL (60-99) Lactic Acid Level 0.9mmol/L (0.4-2.0) Calcium Level 9.1mg/dL (8.5-10.1) Total Bilirubin 0.7mg/dL (0.0-1.2) Aspartate Amino Transf (AST/SGOT) 25U/L (0-50) Alanine Aminotransferase (ALT/SGPT) 14U/L (0-32) Alkaline Phosphatase 95U/L (25-165) Troponin T < 0.010ug/L (0.0-0.011) Pro-B-Type Natriuretic Peptide 3286pg/mL (0-738) Total Protein 5.8g/dL (6.4-8.4) Albumin 3.1g/dL (3.4-5.0) Procalcitonin 11.75ng/mL (0.00-0.08) Urine Color Dark yellow (YELLOW) Urine Appearance Hazy (CLEAR,HAZY) Urine pH 6.5 (5.0-8.0) Urine Specific [place] 1.025 (1.003-1.035) Urine Protein Tracemg/dL (NEG,TRACE) Urine Glucose (UA) Negativemg/dL (NEGATIVE) Urine Ketones Negativemg/dL (NEGATIVE) Urine Occult Blood Small (NEGATIVE) Urine Nitrite Negative (NEGATIVE) Urine Bilirubin Negative (NEGATIVE) Urine Urobilinogen Normalmg/dL (NORMAL) Urine Leukocyte Esterase Trace (NEGATIVE) Urine RBC 0-2/hpf (0-2) Urine WBC 0-5/hpf (0-5) Urine Epithelial Cells Few/hpf (NONE-MOD) Urine Crystals None seen (NONE SEEN) Urine Bacteria None/hpf (NONE-FEW) Urine Hyaline Casts None/lpf (NONE) Urine Granular Casts None seen (NONE SEEN) Urine Waxy Casts None seen (NONE SEEN) Urine Red Blood Cell Casts None seen (NONE SEEN) Urine White Blood Cell Casts None seen (NONE SEEN) Urine Mucus None seen (None Seen) Urine Trichomonas None seen (NONE SEEN) Urine Yeast None (NONE SEEN) Urine Culture Reflexed Indicated ECG Interpretation ECG Interpretation: normal sinus rhythm with a rate of [address] elevations T wave inversion in aVR and V1 unchanged from previous dated 12/11/2016 Time: 23:02 Interpreted by: ED physician X-Ray Chest Interpretation Chest Xray Interpretation: left-sided infiltrate Interpretation / Wet Read by: Wet read ED physician Re-Eval/Medical Decision Med Decision/Clinical Course 76-year-old female who is DO NOT RESUSCITATE brought in by EMS for progressively worsening altered mental status. Patient was being treated for pneumonia and UTI with Levaquin. Differential diagnosis includes but is not limited to urinary tract infection versus pneumonia versus other infectious process versus sepsis. Patient does not have evidence of UTI, however, chest x- ray is concerning for pneumonia. She is refractory to outpatient treatment at this point, and so I have started her on vancomycin and Zosyn and admitted her to the hospitalist. She is aware and amenable to admission. Source of Hx: Old records Re-Evaluation/Progress : Time of Eval: 01:36 Patient Status: Condition improved Re-Evaluation/Progress Note: Pt rechecked, who is resting and accompanied by family. The need for admission is discussed. The pt's family understands and agrees with the plan. All questions are addressed at this time. Consultation : Referral / Consult Name: Christina Aguilar DO Consulted With: Hospitalist Call Returned at: 01:50 Assistant Portfolio Manager: Agrees with eval, Agrees with plan, Accepts admit Note: Spoke with Dr. Aguilar, hospitalist, regarding pt's case. Dr. Aguilar agrees with the evaluation and agrees to admit the pt. Counseled Regarding: Diagnosis, Lab results, Need for admission Patient Discharge & Departure Impression: Primary Impression: Pneumonia Pneumonia type: due to unspecified organism Laterality: left Lung location : unspecified part of lung Qualified Code: J18.9 - Pneumonia, unspecified organism Additional Impression: Failure of outpatient treatment Disposition: ADMITTED TO HOSPITAL Discharge Condition All VS Reviewed: Yes Condition: Stable Referrals: Albert Johns MD (PCP) Wendy Attestation Portions of this note were transcribed by Stephanie Ruelas. I, Dr. Tran personally performed the history, physical exam and medical decision-making; I reviewed and confirmed the accuracy of the information in the transcribed note. Signed by: Wendy Lynne, 01/10/17 and 0238. copies to: Albert Johns MD, Rebecca A MD Jan 09, 2017 22:57 STEPHANIE RUELAS Jan 09, 2017 23:09
[2017-01-09] MEDS ORDERED: Vancomycin Dose per Pharmacist XX ONE (23:00)
[2017-01-09] MEDS ORDERED: Piperacillin-Tazo 3.375 Gm Inj 3.375 GM in Dextrose 5% Minibag Plus 50 ML IV ONE (23:00)
[2017-01-09 23:30] VITALS: PULSE 65; RESP 18; O2SAT 94
[2017-01-09] MEDS ORDERED: Vancomycin Inj 1,750 MG in 0.9% Sodium Chloride 500 ML IV ONE (23:35)
[2017-01-10] VITALS (7 sets, daily range): BP systolic 126–165; BP diastolic 44–78; PULSE 66–74; RESP 18–19; O2SAT 90–94
[2017-01-10 00:21] LABS: BASOPHILS % (AUTO) 0.1 % (0-3); EOSINOPHILS % (AUTO) 0.1 % (0-5); Mean Corpuscular Hemoglobin 31.2 pg (27.0-35.0); Mean Corpuscular Volume 98.3 fL (81-100); NEUTROPHILS % (AUTO) 81.6 % (40-74); Platelet Count 147 bil/L (150-400)
[2017-01-10 00:47] LABS: TROPONIN T < 0.010 ug/L (0.0-0.011)
[2017-01-10 00:51] LABS: INR 1.08 ratio
[2017-01-10] MEDS ORDERED: cefTRIAXone Inj 1,000 MG in Dextrose 5% Minibag Plus 50 ML IV ONE (01:05)
[2017-01-10 01:18] LABS: APPEARANCE,URINE HAZY (CLEAR,HAZY); COLOR,URINE DARK YELLOW (YELLOW); OCCULT BLOOD,URINE SMALL (NEGATIVE); PH,URINE 6.5 (5.0-8.0); UROBILINOGEN,URINE NORMAL (NORMAL)
--- NOTE | 2017-01-10 02:14 | PCM.HPMED ---
Subjective Date of Service Jan 10, 2017 Primary Provider: Admitting Physician: Christina Aguilar DO Primary Care Physician: Albert Johns MD Attending Physician: Christina Aguilar DO Admit Status: From the Emergency Department Chief Complaint: Mental status History of Present Illness: This is a 76 y/o F resident of [facility] with a hx of dysphagia, dementia, seizure disorder, anemia, hypothyroidism, hyperlipidemia, and COPD. Patient was diagnosed with UTI and chest x-ray indicating pneumonia having spiked a fever 103 Fahrenheit on Monday01/07/2017. Patient was placed on antibiotic Levaquin as an outpatient. However patient's symptoms failed to improve and worsened over the past 3 days and she presented to [facility] with symptoms of altered mental status, productive cough, subjective fever of 102, and chills. Staff at [facility] reported patient having episodes of hypoxia one week ago. Staff noticed altered mental status today and the pt was sent to the ED. patient has a history of confusion with urinary tract infections. CXR in the ED as read by ED physician showed left-sided infiltrate. UA had trace leukocyte esterase and small amount of blood otherwise negative. Patient's daughter Carla LYON is present in the room and was primary historian. She states that her mother has denied sore throat, sweats, dysuria, headaches, body aches. Limited interventions include no intubation no chest compressions comfort care with antibiotics and trials of artificial nutrition if needed for short time. In the ED patient received ceftriaxone 1000 mg once, vancomycin, Zosyn 3.375 mg once. Hemogram showed: H/H 10.9/34.3, the PVCs 9.8 with 81.6% PMNs, platelets 147 Chemistry panel within normal limits with exception of mildly elevated glucose of 106 Lactic acid 0.9 Troponin was 0.010 procalcitonin of 11.75, proBNP of 3286 UA significant for: Dark yellow hazy urine with trace protein, small blood, trace leukocyte esterase otherwise negative UA . Urine culture pending Blood cultures 2 pending EKG showed sinus rhythm with a rate of 65, normal axis, QTC prolonged at 520, T- wave inversion in aVR and V1. No ST segment changes no T wave elevation. As read by this physician Vital signs in the ED: Temperature 37.2, pulse 68, respiratory rate 20, blood pressure 127/63, 93% on 4 L NC. Review of Systems: A comprehensive review of systems was conducted and was negative except as mentioned in history of present illness. Allergies Coded Allergies: Oxycodone Terephthalate (Verified Allergy, Severe, RASH, 12/16/16) Sulfa (Sulfonamide Antibiotics) (Verified Allergy, Severe, hives, 12/16/16) acetaminophen (Verified Allergy, Severe, RASH (FROM OXYCODONE-PT TAKING TYLENOL W/O PROBLEMS), 12/16/16) aspirin (Verified Allergy, Severe, RASH, 12/16/16) codeine (Verified Allergy, Severe, rash, hives, 12/16/16) oxycodone (Verified Allergy, Severe, rash, 12/16/16) Erythromycin Lactobionate (Verified Allergy, Unknown, UNKNOWN, 12/16/16) lactose (Verified Allergy, Unknown, UNKNOWN, 12/16/16) morphine (Verified Allergy, Unknown, UNKNOWN, 12/16/16) zolpidem (Verified Allergy, Unknown, UNKNOWN, 12/16/16) hydromorphone HCl (Verified Adverse Reaction, Severe, Hallucinations, 12/16) meperidine (Verified Adverse Reaction, Severe, hallucinations, 12/16/16) mirabegron (Verified Adverse Reaction, Severe, BEHAVIORAL CHANGES, 12/16/16 ) omeprazole (Verified Adverse Reaction, Severe, DIARRHEA, 12/16/16) oxycodone HCl (Verified Adverse Reaction, Severe, makes her high, 12/16/16) simvastatin (Verified Adverse Reaction, Severe, MYALGIAS, 12/16/16) Uncoded Allergies: PHOSPHATE (Allergy, Unknown, UNKNOWN, 08/02/16) Home Medications Cholecalciferol (Vitamin D3) (Vitamin D3) 4,000 Unit Capsule 4,000 UNIT PO DAILY Cyclosporine (Restasis) 1 Each Droperette 1 EACH AFFECT_EYE BID Dextromethorphan HBr/Quinidine (Nuedexta 20-10 mg Capsule) 1 Each Capsule 1 EACH PO BID Fluticasone Propionate (Flonase Allergy Relief) 50 Mcg/Actuation [place].susp 9.9 ML NS DAILY Folic Acid (Folic Acid) 1 Mg Tablet 1 MG PO DAILY Gabapentin (Gabapentin) 300 Mg Capsule 300 MG PO BID Hydroxychloroquine Sulfate (Hydroxychloroquine Sulfate) 200 Mg Tablet 200 MG PO DAILY Lamotrigine (Lamotrigine) 200 Mg Tablet 200 MG PO BID Latanoprost (Latanoprost) 2.5 Ml Drops 1 GTT AFFECT_EYE HS Levothyroxine (Levothyroxine) 100 Mcg Tablet PO DAILY Loperamide/Simethicone (Imodium Multi-Symptom Rel Cplt) 2 mg 1 EACH PO PRN Magnesium Oxide (Mag-Oxide) 400 Mg Tablet 400 MG PO TWICE A DAY Pantoprazole DR (Protonix) 20 Mg Tablet 20 MG PO DAILY Propranolol HCl (Propranolol HCl) 20 Mg Tablet in the morning, and 10 mg in the afternoon for headache prevention Thiamine Mononitrate (Vitamin B-1) 100 Mg Tablet 100 MG PO DAILY Trazodone (Trazodone) 50 Mg Tablet 50 MG PO HS Levaquin 750 mg by mouth per day for pneumonia Lactaid tablet 1-2 tablet by mouth as needed for Matt When necessary medication Guaifenesin/Dextromethorphan (Ofe-Tussin Dm Syrup) 100 Mg-10 Mg/5 Ml Syrup 10 ML PO Q6H PRN PRN PRN Tramadol (Tramadol) 50 Mg Tablet, give 25 mg PO Q6H PRN For Pain Tramadol (Tramadol) 50 Mg Tablet, give 50 mg PO Q8H PRN For Pain PMH Cerebral vascular disease continues to Iron deficiency anemia for many years Reports: GERD, Hyperlipidemia, Hypertension Reports: Dementia, Depression, Glaucoma History of rheumatic fever as a child Surgical History Laminectomy Bladder sling Hemorrhoid surgery Reports: Appendectomy, Cataract surgery, Cholecystectomy, Hysterectomy Family History strong history of CAD, son in his 40's. Mom had Alzheimer's disease Dad had coronary artery disease, hyperlipidemia Social History Hx Alcohol Use: No Hx Substance Use: No Hx Tobacco Use: No Smoking Status: Former Smoker Exam Vital Signs Vital Sign - Last Date Time Temp Pulse Resp B/P Pulse Ox O2 Delivery O2 Flow Rate FiO2 01/10/17 01:49 37.2 68 18 126/44 94 Nasal Cannula 4 Exam General: Elderly-appearing female lying in bed, with her eyes closed, able to respond with mumbling words. His eyes on command. Is able to follow some commands during exam. Coughing wet cough on occasion HEENT: NC/AT, eyes, PERRLA, neck, soft supple, no adenopathy, no JVD, no masses , no thyromegaly, mucus membranes pink and appear very dry, Lungs: Bilateral crackles, with evidence of mild expiratory wheezes, no rhonchi , no use of accessory muscles of respiration, poor air movement, with adequate respiratory effort. Heart: Regular rate and rhythm, no murmur, S1-S2 present, no rub, no click, no distant heart sounds, Abdomen: Soft, patient plans of suprapubic tenderness with palpation, nondistended, bowel sounds active Genitourinary: No CVA tenderness, reports suprapubic tenderness, no Wyatt catheter, Extremities: Pulses equal and symmetric upper/lower extremity including radial and dorsalis pedis, no edema Neurologic: Patient opens eyes to commands, will roll on her side when commended , has difficulty following other exam requests. Skin: Some mild ecchymosis on the dorsal aspects of the upper arms, IV lines in place, otherwise skin is warm dry and intact Psychiatric: Patient is somewhat obtunded however can respond with mumbling Lab and Diagnostics Result Diagram: 01/09/17 1075 01/09/17 6086 Assessment & Plan This is a pleasant 76-year-old female with past medical history of UTI, dysphagia, anemia, hypothyroidism, COPD, seizure disorder and hyperlipidemia who presented with failed outpatient treatment on Levaquin for pneumonia diagnosed by chest x-ray on 01/07/2017 as well as altered mental status. Patient was admitted for pneumonia and altered mental status. # Pneumonia, HCAP, Present on Admission, active - Vital signs in the ED: Temperature 37.2, pulse 68, respiratory rate 20, blood pressure 127/63, 93% on 4 L NC. - Patient resides at [facility]. She was diagnosed with pneumonia and urinary tract infection as an outpatient and failed Levaquin treatment. - Chemistry panel within normal limits with exception of mildly elevated glucose of 106 - Lactic acid 0.9 - Troponin was 0.010 - Procalcitonin of 11.75, proBNP of 3286 - CXR showed left-sided infiltrate. - EKG showed sinus rhythm with a rate of 65, normal axis, QTC prolonged at 520, T-wave inversion in aVR and V1. No ST segment changes no T wave elevation. As read by this physician - Hemogram showed: H/H 10.9/34.3, the PVCs 9.8 with 81.6% PMNs, platelets 147 - Sputum - Blood Cx X 2 pending - We will continue antibiotic medication started in the ED. In the ED patient received ceftriaxone 1000 mg once, vancomycin, Zosyn 3.375 mg once. - Acetominophen for Fever control - IV normal saline at 100 mL per hour - Legionella urine antigen, and Strep pneumonia urine antigen - Viral PCR ([employer]) - Influenzae A/B - MRSA screen # Patient was being treated for UTI as an outpatient, - Patient was on Levaquin 3 days for UTIs now patient. - She does complain of suprapubic tenderness on physical exam - UA significant for: Dark yellow hazy urine with trace protein, small blood, trace leukocyte esterase otherwise negative UA . - Urine culture pending # Acute encephalopathy, present on admission, active - Likely secondary to #1 pneumonia vs iatrogenic - Patient's daughter reporting that patient is not speaking to her while she is in the room, which is her normal. Patient calling out for her daughter when patient is not in room. - It is difficult to say how much of this is patient's underlying dementia and or new versus worsening acute altered mental status. - UA was negative except for dark yellow hazy urine with trace protein, small blood, trace leukocyte esterase # Dementia -Continue outpatient medication Nuedexta -PT/OT/speech eval # Dysphagia -Swallow screening by RN -Swallow evaluation in the daytime with speech therapy -Mechanical diet # Chronic Iron deficiency anemia, present on admission # Seizure disorder -Continue outpatient medication lamotrigine # GERD - Continue home medication Protonix # Hyperlipidemia -Continue Lipitor -Continue patient medication of Plaquenil # Hypertension -Continue propranolol # Dementia # Depression -Continue medication trazodone # Glaucoma -Continue outpatient latanoprost drops # Hypothyroidism - Continue medication levothyroxine # Chronic Pain -Continue outpatient medication gabapentin Disposition: Admitted to in patient service with expected length of stay greater than 2 days, secondary to severity of presenting symptoms, treatment plan, complexity of clinical work up, and risk of adverse events. CODE STATUS: DO NOT RESUSCITATE, DO NOT INTUBATE. Limited intervention includes comfort care only with antibiotics and artificial nutrition as needed. DVT PE prophylaxis: SubQ heparin Q8H Contact: Carla reich's daughter and DPOA at [phone] Stepdaughter Sanam VTE Prophylaxis: Sub-Q Heparin (Unfractionated) Resuscitation Status: Limited Interventions (DO NOT RESUSCITATE with limited intervention) Attending Statement The patient was seen and examined together with house staff on 01/10/2017 and I agree with the history, exam and plan as outlined in the note above. Chris Guerra DO Jan 10, 2017 02:14 Christina Aguilar DO Jan 10, 2017 04:46
[2017-01-10] MEDS ORDERED: 0.9% Sodium Chloride 1,000 ML IV SCH (02:22)
[2017-01-10] MEDS ORDERED: Polyethylene Glycol (PEG) 17 Gm Powder PO PRN (02:25)
[2017-01-10] MEDS ORDERED: Alum-Mag Hydrox-Simeth 30 mL Suspension PO PRN (02:25)
--- NOTE | 2017-01-10 02:30 | NUR ---
ADMIT Patient arrived to unit at 0220, three person slide board transfer, on 4L of O2. Base line confusion, POA daughter Carla answered admit questions. Incontinent of bladder, difficulty making needs known. Minimal assist with bed mobility. No noted s/s of pain and or discomfort at this time.
--- NOTE | 2017-01-10 03:32 | PCM.CONPHA ---
Subjective Date of Service: Jan 10, 2017 Requesting Provider: Chris Guerra DO Mental status Reason for Pharmacy Consult: Vancomycin Dosing Objective Vital Signs Date Time Temp Pulse Resp B/P Pulse Ox O2 Delivery O2 Flow Rate FiO2 01/10/17 02:44 Supplement Oxygen 01/10/17 02:20 36.9 71 19 159/74 90 Nasal Cannula 4.00 01/10/17 02:08 37.2 68 18 126/44 94 Nasal Cannula 4 01/10/17 01:49 37.2 68 18 126/44 94 Nasal Cannula 4 01/09/17 23:30 65 18 94 Nasal Cannula 2 01/09/17 22:44 37.2 68 20 127/63 93 Nasal Cannula 4 Weight (Kilograms): 90.91 Height (Feet): 5 Height (Inches): 7 Test 01/09/17 23:55 01/10/17 00:30 White Blood Count 9.8th/mm3 (3.8-10.1) Red Blood Count 3.49mil/mm3 (3.90-5.20) Hemoglobin 10.9g/dL (12.0-15.6) Hematocrit 34.3% (35.0-46.0) Mean Corpuscular Volume 98.3fL (81-100) Mean Corpuscular Hemoglobin 31.2pg (27.0-35.0) Mean Corpuscular Hemoglobin Concent 31.8% (32.0-37.0) Red Cell Distribution Width 14.1% (12.3-15.4) Platelet Count 147bil/L (150-400) Neutrophils (%) (Auto) 81.6% (40-74) Lymphocytes (%) (Auto) 9.0% (14-46) Monocytes (%) (Auto) 9.0% (4-12) Eosinophils (%) (Auto) 0.1% (0-5) Basophils (%) (Auto) 0.1% (0-3) Prothrombin Time 11.6sec (8.1-12.5) Prothromb Time International Ratio 1.08ratio Activated Partial Thromboplast Time 37.1sec (22.8-33.0) Sodium Level 141mEq/L (134-144) Potassium Level 3.9mEq/L (3.5-5.2) Chloride Level 102mEq/L (97-108) Carbon Dioxide Level 23mmol/L (18-29) Blood Urea Nitrogen 21mg/dL (8-27) Creatinine 0.84mg/dL (0.57-1.00) Estimat Glomerular Filtration Rate 94mL/min (>59) Glucose Level 106mg/dL (60-99) Lactic Acid Level 0.9mmol/L (0.4-2.0) Calcium Level 9.1mg/dL (8.5-10.1) Total Bilirubin 0.7mg/dL (0.0-1.2) Aspartate Amino Transf (AST/SGOT) 25U/L (0-50) Alanine Aminotransferase (ALT/SGPT) 14U/L (0-32) Alkaline Phosphatase 95U/L (25-165) Troponin T < 0.010ug/L (0.0-0.011) Pro-B-Type Natriuretic Peptide 3286pg/mL (0-738) Total Protein 5.8g/dL (6.4-8.4) Albumin 3.1g/dL (3.4-5.0) Procalcitonin 11.75ng/mL (0.00-0.08) Urine Color Dark yellow (YELLOW) Urine Appearance Hazy (CLEAR,HAZY) Urine pH 6.5 (5.0-8.0) Urine Specific [place] 1.025 (1.003-1.035) Urine Protein Tracemg/dL (NEG,TRACE) Urine Glucose (UA) Negativemg/dL (NEGATIVE) Urine Ketones Negativemg/dL (NEGATIVE) Urine Occult Blood Small (NEGATIVE) Urine Nitrite Negative (NEGATIVE) Urine Bilirubin Negative (NEGATIVE) Urine Urobilinogen Normalmg/dL (NORMAL) Urine Leukocyte Esterase Trace (NEGATIVE) Urine RBC 0-2/hpf (0-2) Urine WBC 0-5/hpf (0-5) Urine Epithelial Cells Few/hpf (NONE-MOD) Urine Crystals None seen (NONE SEEN) Urine Bacteria None/hpf (NONE-FEW) Urine Hyaline Casts None/lpf (NONE) Urine Granular Casts None seen (NONE SEEN) Urine Waxy Casts None seen (NONE SEEN) Urine Red Blood Cell Casts None seen (NONE SEEN) Urine White Blood Cell Casts None seen (NONE SEEN) Urine Mucus None seen (None Seen) Urine Trichomonas None seen (NONE SEEN) Urine Yeast None (NONE SEEN) Urine Culture Reflexed Indicated Assessment/Plan Assessment/Plan A: * Vancomycin dosing by pharmacy for 76 y/o woman with HCAP * She was given a vancomycin 1750 mg IV loading dose in the ED * Estimated CrCl is 66 mL/min (Cockcroft & Gault using AdjBW) * Estimated vancomycin half-life is 12 hours and estimated Vd is 64 liters P: * Starting vancomycin 1000 mg IV every 12 hours * Target a vancomycin trough range of 15 - 20 mcg/mL * Drawing a trough level prior to the fourth dose Thank you. Pharmacy will continue to follow this patient. Zuleyka Begum, PharmD Zuleyka Begum Jan 10, 2017 03:32
[2017-01-10] MEDS ORDERED: cefTRIAXone Inj 1,000 MG in Dextrose 5% Minibag Plus 50 ML IV SCH (04:00)
[2017-01-10 06:01] LABS: BASOPHILS % (AUTO) 0.1 % (0-3); EOSINOPHILS % (AUTO) 0.1 % (0-5); MONOCYTES % (AUTO) 10.1 % (4-12); Mean Corpuscular Hemoglobin 31.4 pg (27.0-35.0); Mean Corpuscular Volume 98.3 fL (81-100); NEUTROPHILS % (AUTO) 78.4 % (40-74); Platelet Count 148 bil/L (150-400)
[2017-01-10 06:24] LABS: Magnesium 1.8 mg/dL (1.6-2.6)
[2017-01-10] MEDS: 0.9% Sodium Chloride 1,000 ML IV SCH ×2 (06:25→14:05)
--- NOTE | 2017-01-10 08:17 | DRSVH ---
PROCEDURE: X-RAY CHEST ONE VIEW, PORTABLE ([id number]) INDICATIONS: altered mental status TECHNIQUE: One view of the chest was acquired. COMPARISON: [facility], CR, XR CHEST 1VW (PORTABLE), 09/08/2016, 16:47. FINDINGS: Surgical changes and devices: None. Lungs and pleura: No pleural effusions or pneumothorax. Bibasilar patchy consolidative opacities, wh ich are increased. Lung volumes are low. Mediastinum: Mediastinal contours appear normal. Heart size is normal. Bones and chest wall: No suspicious bony lesions. Overlying soft tissues appear unremarkable. IMPRESSION: Patchy bibasilar consolidative opacities possibly aspiration versus atelectasis in the se tting of low lung volumes although cannot exclude early pneumonia. Please correlate clinically. Dictated by: Herberth Baker M.D. on 01/10/2017 at 8:10 Approved by: Herberth Baker M.D. on 01/10/2017 at 8:15
[2017-01-10] MEDS ORDERED: Vancomycin Dose per Pharmacist XX SCH (08:30)
[2017-01-10] MEDS: Piperacillin-Tazo 3.375 Gm Inj 3.375 GM in Dextrose 5% Minibag Plus 50 ML IV SCH ×2 (08:44→16:42)
[2017-01-10] MEDS: Heparin 5,000 Unit/mL Inj SUBQ SCH ×2 (08:44→16:41)
--- NOTE | 2017-01-10 11:23 | NUR ---
Evaluation completed. Please go to "Notes" then click on "Assessments and Notes" (bottom left corner of screen). Then select appropriate discipline tab on top of screen.
[2017-01-10] MEDS ORDERED: Vancomycin Inj 1,000 MG in IV Premix 1 EACH IV SCH (11:30)
[2017-01-10] MEDS ORDERED: [UNRECOGNIZED DRUG - CODE] PO (15:46)
[2017-01-10] MEDS ORDERED: ASPI1CPM6 PO (15:46)
[2017-01-10] MEDS ORDERED: GUAI237L83 PO (15:46)
[2017-01-10] MEDS ORDERED: CALC500T9 PO (15:46)
[2017-01-10] MEDS ORDERED: PROP10TA8 PO (15:46)
[2017-01-10] MEDS ORDERED: LEVO750T39 PO (15:46)
[2017-01-10] MEDS ORDERED: ATOR10TA66 PO (15:46)
[2017-01-10] MEDS ORDERED: LOPE2CAP PO (15:46)
[2017-01-10] MEDS ORDERED: LEVO100T6 PO (15:46)
[2017-01-10] MEDS ORDERED: IPRA3AMP IH (15:46)
[2017-01-10] MEDS ORDERED: ONDA4TAB9 PO (15:46)
[2017-01-10] MEDS ORDERED: BUTA1CAP16 PO (15:46)
--- NOTE | 2017-01-10 15:52 | NUR ---
RESP Patient continues to require 4 LPM O2 via NC, O2 sats 93%. Rare non-productive cough noted, no sputum able to be collected. Encouraged deep breathing and coughing, but patient has hx of dementia and is forgetful. Able to get up to BSC with 1 person assistance and FWW. Tolerating IV antibiotics without any problem. Care continues.
--- NOTE | 2017-01-10 16:01 | NUR ---
Social Work-initial assessment: Data:See initial assessment. Pt is a 76 y/o female who was admitted on 01/10/17 for pneumonia per H&P. Pt's insurance is [employer] by [facility] and [facility] and PCP is michelle Diaz MD. EMR Reviewed. Pt resides at [facility], [place] call and spoke with Cherie in admissions [phone]. Cherie confirms pt uses a fww or w/c at baseline and does not drive. Pt has no HH history. Pt has no LTC or VA benefits. DPOA/ advanced directive has been completed, SW encouraged a copy to be brought in. SH[place]ANU confirmed with Cherie that [facility] is able to accept pt back at discharge with Dr. Diaz to follow. Pt and ST have seen pt and recommend return to facility.SW placed a call to daughter ryanne and left message requesting a return call. Paperwork in the chart. SW will continue to follow. Assessment:pt who is nursing home care. Plan:Pt to likely discharge back to [facility] when medically stable. Paperwork in the chart. SW will continue to follow. SHYAM Gutiérrez Addendum: 01/10/17 at 1605 by RUBIA DAS Amended: Links added.
--- NOTE | 2017-01-10 16:05 | NUR ---
[facility] can accept back with Dr. Diaz to follow. Pt is long-term care care pt there. SHYAM Gutiérrez
--- NOTE | 2017-01-10 20:50 | CONS ---
[address] [address] CONSULTATION REPORT PATIENT: ROBB CARLSON : 1940 MR#: [id number] ADMIT: 01/10/2017 JOB ID: [id number] DATE OF SERVICE: 01/10/2017 REASON FOR CONSULTATION: Elevated procalcitonin and possible resolving pulmonary infection in an elderly female. HISTORY OF PRESENT ILLNESS: The patient is a 76-year-old woman who resides at the [facility]. She suffers from dementia, seizure disorder, some underlying COPD and carries a diagnosis of rheumatic fever from childhood. She reports that she is usually ambulatory at [facility] [place] and was doing well relatively recently, but the story that we have obtained is that she was diagnosed apparently with both urinary tract infection and pneumonia at [facility] [place] on January 07 based on a history of fevers occurring at [facility] [place] which led to a chest x-ray that was done there and interpreted as a probable new infiltrate. There was also apparently some pyuria which suggested the diagnosis of urinary tract infection and, for that reason, she was started by the correction staff on levofloxacin. Unfortunately, after 2 or 2-1/2 days of levofloxacin, she developed some decline in her chronically slightly abnormal mental status and had some ongoing fever, so she was transported to this facility late yesterday and admitted early this morning. Since her admission, she has been started on broad-spectrum antibiotics including vanc, ceftriaxone and Zosyn and appropriate cultures and other studies have been done. Infectious Disease consultation is requested regarding antibiotic management in this complex patient. The patient this afternoon is awake and alert, but she is oriented times more or less two. She is unaware of time and knows she is in a hospital but is not certain where the hospital is. She tells us basically that she has a bit of a dry cough but otherwise is really asymptomatic. She today denies sore throat, productive cough, chest pain, shortness of breath, nausea, vomiting, diarrhea or dysuria. She states she has no particular pain in her back or joints. PAST MEDICAL HISTORY: 1. Dementia. 2. Seizures. 3. Iron-deficiency anemia. 4. Hyperlipidemia. 5. Hypothyroidism. 6. COPD. 7. History of recurrent UTIs. 8. Rheumatic fever as a child. 9. GERD. 10. Status post cholecystectomy and appendectomy. SOCIAL HISTORY: The patient resides at [facility]. She used to live in [place], but she says she has been at [facility] for an extended period. She is an ex-smoker, no longer smokes, of course. Does not drink alcohol. FAMILY HISTORY: Notable for early coronary artery disease in a son. There is no known history of tuberculosis in her family including first-degree relatives. REVIEW OF SYSTEMS: The patient says she has no significant headache, sinus complaints, sore throat, stiff neck, productive cough, pleuritic chest pain, shortness of breath. No nausea, vomiting, diarrhea, dysuria, urgency, frequency, pain in the joints or skin rash. She does have a dry cough which she states has been going on for an unclear period of time, perhaps a week. Remainder of the review of systems is negative. PHYSICAL EXAMINATION: Reveals an afebrile woman, temp 36.9, pulse 68, respiratory rate 18, blood pressure 165/76. She is saturating well on 4 L. She does not appear to be in any distress nor in any way toxic. Examination the head: No trauma. No temporal wasting. Eyes without conjunctivitis or scleral icterus. Oral cavity: No thrush or pharyngitis. Neck is supple without adenopathy or JVD. Lungs: Fairly clear posteriorly. Maybe a few crackles at the left base but not impressive. Cardiac tones: Regular rate and rhythm with a 2/6 systolic murmur heard best along the left lower sternal border. The abdomen is soft, nontender, without organomegaly or ascites. No suprapubic tenderness is appreciated. She does not have a Wyatt catheter. She does not have any evidence of skin breakdown on her heels, hips or anywhere else. She does not have evidence of synovitis or skin rash. Her extremities are well perfused and without notable abnormalities. Remainder of the physical exam is noncontributory or normal. LABORATORIES: Include white count of 9800 at midnight last night in the ED, 9000 this morning. Platelets 148. The diff is surprisingly normal at about 80% segs. Creatinine 0.92. LFTs normal. A procalcitonin very elevated at 11.75. BNP 3286. Urinalysis without white cells. Urine Legionella and pneumococcal antigens are negative. Respiratory viral PCR panel negative. MRSA screen negative. Urine culture negative at 16 hours. Blood cultures also negative at 16 hours. Chest x-ray was carefully evaluated on the screen and compared to prior films. There is patchy bibasilar infiltrates which are a bit worse than prior films, but it is not clear if this is related to respiratory effort or not. There is no major infiltrate seen. IMPRESSION: This is a bit of a confusing case of a woman who apparently had fevers and altered mental status beyond her baseline at [facility] [place] back on the . At that time, portable chest x-ray as well as urinalysis were indicative of possible pneumonia and possible urinary tract infection. She was started on Levaquin but failed to improve in the next two and a half days and so was transported here and admitted. At this point, she does not look toxic in any way. The patient is currently afebrile, has a normal white count, a relatively normal chest x-ray, and a normal urinalysis. The main concern I see here is that her procalcitonin is almost 12 which is extraordinarily elevated and is usually seen with sepsis. The patient does not seem to have any of the usual conditions which can produce a false positive Procalcitonin. We have no prior level to compare to, so we must conclude that there is a significant ongoing bacterial infection. Given that I think the most likely source is pulmonary, note that even well chosen antibiotics often cause two, three or four days to produce reduction in fever and sometimes even procalcitonin. I suspect what we are dealing with now is the end of a process that was initially treated appropriately at [facility] [place], but which had not yet run its course by the time she was transferred here. RECOMMENDATIONS: 1. I would discontinue the vancomycin and ceftriaxone she is receiving as there is no evidence of MRSA and ceftriaxone is redundant when added to Zosyn. 2. Will continue the Zosyn as a single broad-spectrum antibiotic for a patient who may have a nosocomial aspiration-type process. 3. Will continue to follow this patient with you, but if we start to see a significant drop in her procalcitonin, I think we may be able to switch fairly soon to a more limited antibiotic choice and get her back to [facility] [place] before too terribly long. Thank you very much for this timely consult.
[2017-01-11] VITALS (7 sets, daily range): BP systolic 135–172; BP diastolic 72–93; PULSE 63–73; RESP 14–18; O2SAT 93–97
[2017-01-11] MEDS: Heparin 5,000 Unit/mL Inj SUBQ SCH ×3 (00:01→18:03)
[2017-01-11] MEDS: Piperacillin-Tazo 3.375 Gm Inj 3.375 GM in Dextrose 5% Minibag Plus 50 ML IV SCH ×4 (00:01→18:37)
[2017-01-11] MEDS: Ondansetron 2 mg/mL 2 mL Inj IVPUSH PRN (02:42)
[2017-01-11] MEDS: 0.9% Sodium Chloride 1,000 ML IV SCH ×3 (02:42→21:33)
--- NOTE | 2017-01-11 04:04 | NUR ---
Activity/nausea Pt very restless and only oriented to self. Pt has been paranoid this shift and thinks a "man is watching her." Pt also has been trying to get out of bed, ursula alarm in place. Pt up multiple times to BSC with OPA and FWW, however pt not voiding when on commode but does void in brief. Pt continues on 4L O2 via NC with humidification, O2 sats 92-94%. Pt reporting nausea after trying to drink water and Zofran 4mg IV was given, no complaints since. Encouraging pt to deep breathe and cough, needs constant reminders due to dementia/forgetfulness.
[2017-01-11 06:12] LABS: BASOPHILS % (AUTO) 0.3 % (0-3); EOSINOPHILS % (AUTO) 0.4 % (0-5); MONOCYTES % (AUTO) 15.2 % (4-12); Mean Corpuscular Hemoglobin 31.6 pg (27.0-35.0); Mean Corpuscular Volume 98.2 fL (81-100); NEUTROPHILS % (AUTO) 72.4 % (40-74); Platelet Count 142 bil/L (150-400)
[2017-01-11] MEDS ORDERED: KCl 40 mEq/100 mL (CENTRAL) 40 MEQ in IV Premix 1 EACH IV ONE (07:50)
[2017-01-11] MEDS ORDERED: KCl 40 mEq/D5W 500 mL 40 MEQ in IV Premix 1 EACH IV ONE (07:55)
[2017-01-11] MEDS ORDERED: Vancomycin Serum Trough XX ONE (11:00)
[2017-01-11] MEDS ORDERED: Aspirin-Caffeine-Butalbital Tablet PO PRN (12:15)
[2017-01-11] MEDS ORDERED: Albuterol-Ipratropium 3 mL Inhalation Solution INHALATION PRN (12:15)
[2017-01-11] MEDS: Pt Own Med->RESTASIS BOTH_EYES SCH ×2 (13:15→20:30)
--- NOTE | 2017-01-11 13:30 | NUR ---
Social Work-readiness for discharge: Data:EMR Reviewed. Pt is on day 1 of hospitalization for pneumonia per H&P. Pt is not medically stable for discharge at this time. SHANTANU spoke with pt's daughter Carla [phone] work or cell [phone]. Daughter in agreement for pt to return to [facility] when medically stable. SHANTANU updated Cherie at [facility], [facility] is able to accept pt back when medically stable. Paperwork has been placed in the chart. SW will continue to follow. Assessment:Pt who resides at [facility]. Plan:Pt to discharge back to [facility] when medically stable. Pt is a custodial care pt there. Paperwork has been placed in the chart. SW will continue to follow. SHYAM Gutiérrez
[2017-01-11] MEDS: Pantoprazole 20 mg ER24 Tablet PO SCH (14:46)
[2017-01-11] MEDS: Dipyridamole-Aspirin 200-25 mg ER12 Capsule PO SCH ×2 (14:48→20:30)
[2017-01-11] MEDS: lamoTRIgine 100 mg Tablet PO SCH ×2 (14:56→20:30)
[2017-01-11] MEDS: Fluticasone 0.05% 15 Spray/2 Gm 16 Gm Nasal Spray NASAL SCH (14:56)
--- NOTE | 2017-01-11 17:13 | PCM.PNMED ---
Subjective Date of Service Jan 11, 2017 Subjective Patient was seen and examined at bedside today. Patient denies any chest pain, shortness of breath, nausea, vomiting, diarrhea. The patient today is more alert and is responding appropriately to questions. The patient's altered mental status seems to be moving closer to her baseline. The patient's daughter was present in the room today and agrees that her mother is returning back to her baseline mental status. Overnight events: The patient was still confused overnight and did had some concerns with nausea. The patient was satting at 92-94% on 4 L of oxygen. Exam Vital Signs Vital Sign - Last Date Time Temp Pulse Resp B/P Pulse Ox O2 Delivery O2 Flow Rate FiO2 01/11/17 11:29 37.3 68 18 172/93 93 Nasal Cannula 4.00 Intake and Output 01/10/17 01/10/17 01/11/17 Cumulative From/Thru 15:00 23:00 07:00 01/09/17 22:44 - 01/11/17 06:07 Intake Total 1375 ml 1861 ml 3236 ml Output Total 382 ml 382 ml Balance 1375 ml 1479 ml 2854 ml Intake Oral 550 ml 550 ml IV Total 1375 ml 1311 ml 2686 ml Output Urine Total 382 ml 382 ml # Voids 1 # Bowel Movements 0 0 Exam Physical Exam: GEN: Patient was awake, alert, responding appropriately to questions HEENT: Pupils equal round and reactive to light, extraocular eye muscles intact , Neck soft supple, trachea midline, nomocephalic/atraumatic CV: +S1/S2, regular rate and rhythm, systolic murmur auscultated Respiratory: CTAB, no wheezes, rales, rhonchi GI: +bowel sounds x4, soft, compressible, nontender to palpation EXT: no clubbing, cyanosis, edema Neuro: Cranial nerves II-XII grossly intact Psych: mood and affect were appropriate IVs and Medications Medications Reviewed: Medications were reviewed in detail (multiple home medications were restarted today) Lab and Diagnostics Result Diagram: 01/11/1755701/11/17557 Assessment & Plan A 76-year-old female with past medical history of UTI, dysphagia, anemia, hypothyroidism, COPD, seizure disorder and hyperlipidemia who presented with failed outpatient treatment on Levaquin for pneumonia diagnosed by chest x-ray on 01/07/2017 as well as altered mental status. Patient was admitted for pneumonia and altered mental status. Pneumonia, HCAP, Present on Admission, active -Blood cultures negative 24 hours -Urine culture shows Mixed urogenital sydni but negative for strep pneumonia -MRSA screen negative -Negative troponin -Elevated procalcitonin lactic acid within normal limits -Viral PCR negative - Influenza screen negative -Elevated BNP 3286 -Continue Zosyn UTI. Outpatient treatment -Continue Zosyn as recommended by infectious disease -Infectious disease following (Dr. Diane) Acute encephalopathy present on admission (resolving) - Likely secondary to pneumonia vs iatrogenic -Patient is starting to return back to her normal baseline status continue with treatment of pneumonia and UTI Dementia -Continue outpatient medication Nuedexta -PT/OT/speech eval Dysphagia -Speech and swallow evaluation with confirmation of dysphagia mechanical diet Chronic iron deficiency anemia currently stable Seizure disorder -Continue outpatient medication lamotrigine GERD - Continue home medication Protonix Hyperlipidemia -Continue Lipitor Hypertension (uncontrolled) -Continue propranolol -Start hydrochlorothiazide 12.5 mg daily Depression -Continue medication trazodone Glaucoma -Continue outpatient latanoprost drops Hypothyroidism - Continue medication levothyroxine Chronic Pain -Continue outpatient medication gabapentin Disposition: The patient is progressing well and is returning back to her baseline mental status. The patient seems to be improving significantly and if her procalcitonin continues to trend down the way has been, the patient will most likely be able to be discharged home tomorrow on oral antibiotics. Many of the patient's home medications were restarted today as she is now clinically stable. CODE STATUS: DO NOT RESUSCITATE, DO NOT INTUBATE. Limited intervention includes comfort care only with antibiotics and artificial nutrition as needed. DVT PE prophylaxis: SubQ heparin Q8H Contact: Carla patient's daughter and DPOA at [phone] Stepdaughter Sanam VTE Prophylaxis: Sub-Q Heparin (Unfractionated) Resuscitation Status: Limited Interventions (DO NOT RESUSCITATE with limited intervention) Amalia Marks DO Jan 11, 2017 12:34
--- NOTE | 2017-01-11 20:16 | PROG NOTE ---
[address] [address] PROGRESS NOTE PATIENT: ROBB CARLSON : 1940 MR#: [id number] ADMIT: 01/10/2017 JOB ID: [id number] DATE: 01/11/2017 REASON FOR FOLLOWUP: Occult infection with elevated procalcitonin. INTERVAL HISTORY: Recall that this is the 76-year-old woman who was seen yesterday after transfer from [place]. She has underlying [id number] dementia and COPD. She developed what was thought to be a serious infection several days ago back on January 07 at [place] and was started on levofloxacin for a couple of days for what was thought to be either a pneumonia and/or UTI. She failed to improve significantly and continued to have an abnormal mental status and decreased activity and was therefore transferred here where for broad-spectrum antibiotics were started. Yesterday, I saw her in consult and I was not clear as to what the source of her infection was, but I was impressed by the very high procalcitonin and recommended we continue Zosyn while we attempt to sort things out. Today, the patient seems more awake and alert than yesterday. She tells me she lives at [facility] in [place], [place] which is, of course, the city where [place] is present, so she is partially correct on that. She also knows it is 2016. She states that today she is feeling relatively well, though she right now feels an urgent need to urinate. She denies significant headache. She says she has minimal cough and her shortness of breath is at baseline. She denies nausea, vomiting, diarrhea, and says her appetite is diminished but present. She has no other focal symptoms. PHYSICAL EXAMINATION: Reveals an afebrile woman, temp 36.3, blood pressure 150/74, she is saturating fairly well on 4 L and is in no acute distress. Conversational today. Oral cavity without thrush or pharyngitis. Neck reasonably supple. Lungs with a few crackles heard at the bases but not bad. Cardiac tones with the same systolic ejection murmur as yesterday. Abdomen soft and nontender. No skin rash. LABORATORIES: Include a white count 6700, basically a normal diff today for the first time. Creatinine 0.83. LFTs normal. Procalcitonin was 12 two days ago. It is now 7, so a significant decline in what was a very high procalcitonin. Urinalysis had no white cells. Urine Legionella and pneumococcal antigens were negative. Respiratory viral PCR negative and blood cultures negative. IMAGING: Included the chest x-ray, which showed bibasilar opacities, which could be pneumonia or atelectasis. IMPRESSION: The patient looks quite nontoxic as she did yesterday when I first saw her. I think the main concern here is her very elevated procalcitonin and the history of what appeared to be significant infections now five days ago at [place] which initially prompted the start of levofloxacin for possible pneumonia and possible urinary tract infection. I hate to be in the position of treating a number in a patient who otherwise looks fine, but I think that is where we are in this case. The patient's procalcitonin of almost 12 demands respect and it is gradually coming down with broad-spectrum antibiotics. So, I think we should continue at least in the short run and observe her procalcitonin while we treat her. RECOMMENDATIONS: 1. Will continue with Zosyn as our single antibiotic for possible nosocomial aspiration-type pneumonia. 2. I would continue to check procalcitonin every 1-2 days and as it continues to fall we could consider transition back to [place] for a short total course of Zosyn. 3. Will continue to follow this complex patient with you.
[2017-01-12] VITALS (14 sets, daily range): BP systolic 139–187; BP diastolic 72–89; PULSE 59–81; RESP 16–18; O2SAT 79–97
[2017-01-12] MEDS: Piperacillin-Tazo 3.375 Gm Inj 3.375 GM in Dextrose 5% Minibag Plus 50 ML IV SCH ×3 (00:48→16:35)
[2017-01-12] MEDS: Heparin 5,000 Unit/mL Inj SUBQ SCH ×3 (00:49→16:36)
--- NOTE | 2017-01-12 03:15 | NUR ---
nightmares / delusions Patient awoke frequently, once stating there were " Bodies" in the bathroom. Easily redirected and able to return to sleep. [place] alarm on for safety as patient does not use call light and is impulsive. Requested PRN breathing treatment, treatment effective.
[2017-01-12] MEDS: 0.9% Sodium Chloride 1,000 ML IV SCH ×3 (06:05→16:35)
[2017-01-12 06:23] LABS: Mean Corpuscular Hemoglobin 31.2 pg (27.0-35.0); Mean Corpuscular Volume 97.4 fL (81-100)
[2017-01-12] MEDS: Dipyridamole-Aspirin 200-25 mg ER12 Capsule PO SCH ×2 (08:21→20:04)
[2017-01-12] MEDS: Fluticasone 0.05% 15 Spray/2 Gm 16 Gm Nasal Spray NASAL SCH (08:21)
[2017-01-12] MEDS: Pt Own Med->RESTASIS BOTH_EYES SCH ×2 (08:21→20:13)
[2017-01-12] MEDS: Pantoprazole 20 mg ER24 Tablet PO SCH (08:22)
[2017-01-12] MEDS: lamoTRIgine 100 mg Tablet PO SCH ×2 (08:23→20:04)
--- NOTE | 2017-01-12 09:20 | NUR ---
BP/MD NOTIFICATION SBP-180's; HR-60's. BS-98. Patient is alert to self only. Patient was up and sitting in the chair for breakfast but then, complained of dizziness. Transferred back to bed. Lethargic at this time. Dr. Marks made aware and she is at the bedside at this time. New orders received. Will continue to monitor.
--- NOTE | 2017-01-12 09:51 | NUR ---
SAAD: Patient unarouseable and spoke with RN patient is confused and not appropriate for SAAD. Asked FOREIGN LANGUAGE INTERPRETER to follow with NOK/family for SAAD.
--- NOTE | 2017-01-12 11:02 | NUR ---
NUTRITION ASSESSMENT: ASSESS: 76YO F admit with possible aspiration pneumonia, on antibiotics. Speech therapy following; poor appetite/poor po intake. PMHX: CVD,Anemia, GERD,HTN,Dementia,COPD DIET: Dysphagia Mechanical. PO bites-25% LABS: Alb 2.7 MEDS: Antibiotics GI: 2 BM 01/11 WEIGHT: 78.3kg BMI: 27.0 EST.NEEDS: COPD (30-35kcal/kg;1.2-1.5g/kg) Kcal: 6801-7408 Pro: 95-117g NUTRITION DIAGNOSIS: (1) Inadequate oral intake related to decreased appetite as evidenced by po intake bites-25% x 2 days. (2) Chew/swallowing difficulty related to dysphagia as evidenced by modified diet texture. (3) Increased energy/protein needs related to increased demand for nutrients as evidenced by COPD. INTERVENTION: (1) Supplements added to all meal trays. MONITOR/EVALUATE: PO intake, texture tolerance, lab values. F/U per moderate risk.
[2017-01-12] MEDS ORDERED: Labetalol 5 mg/mL 4 mL Inj IVPUSH ONE (12:10)
--- NOTE | 2017-01-12 16:44 | PCM.PNMED ---
Subjective Date of Service Jan 12, 2017 Subjective Patient was seen and examined at bedside today. Patient denies any chest pain, shortness of breath, nausea, vomiting, diarrhea. Although the patient does seem a little more lethargic than usual today. Overnight events: Patient did have a little bit of a rough night she did have some nightmares and needed redirection. Patient did need a breathing treatment overnight. Exam Vital Signs Vital Sign - Last Date Time Temp Pulse Resp B/P Pulse Ox O2 Delivery O2 Flow Rate FiO2 01/12/17 14:59 36.8 66 18 172/80 Nasal Cannula 2.00 97 01/12/17 10:28 Intake and Output 01/11/17 01/11/17 01/12/17 Cumulative From/Thru 15:00 23:00 07:00 01/09/17 22:44 - 01/12/17 06:12 Intake Total 1690 ml 1338 ml 6264 ml Output Total 872 ml 475 ml 1729 ml Balance 818 ml 863 ml 4535 ml Intake Oral 640 ml 200 ml 1390 ml IV Total 1050 ml 1138 ml 4874 ml Output Urine Total 872 ml 475 ml 1729 ml # Voids 1 # Bowel Movements 2 0 2 Exam Physical Exam: GEN: Patient was was arousable, and did respond appropriately to questions HEENT: Pupils equal round and reactive to light, extraocular eye muscles intact , Neck soft supple, trachea midline, nomocephalic/atraumatic CV: +S1/S2, regular rate and rhythm, systolic murmur auscultated Respiratory: CTAB, no wheezes, rales, rhonchi GI: +bowel sounds x4, soft, compressible, nontender to palpation EXT: no clubbing, cyanosis, edema Psych: mood and affect were appropriate IVs and Medications Medications Reviewed: Medications were reviewed in detail Lab and Diagnostics Result Diagram: 01/12/1733 01/12/17 0533 Assessment & Plan A 76-year-old female with past medical history of UTI, dysphagia, anemia, hypothyroidism, COPD, seizure disorder and hyperlipidemia who presented with failed outpatient treatment on Levaquin for pneumonia diagnosed by chest x-ray on 01/07/2017 as well as altered mental status. Patient was admitted for pneumonia and altered mental status. Pneumonia, HCAP, Present on Admission, active -Blood cultures negative 24 hours -Urine culture shows Mixed urogenital sydni but negative for strep pneumonia -MRSA screen negative -Negative troponin -Elevated procalcitonin lactic acid within normal limits -Viral PCR negative - Influenza screen negative -Elevated BNP 3286 -Continue Zosyn UTI failed outpatient treatment -Continue Zosyn as recommended by infectious disease -Infectious disease following (Dr. Diane) Acute encephalopathy present on admission (resolving) - Likely secondary to pneumonia vs iatrogenic -Patient is starting to return back to her normal baseline status continue with treatment of pneumonia and UTI Hypertension (uncontrolled) -Continue propranolol -1 time dose of labetalol 20 mg IV -Increase hydrochlorothiazide to 50 mg daily -Continue to monitor Dementia -Continue outpatient medication Nuedexta -PT/OT/speech eval Dysphagia -Speech and swallow evaluation with confirmation of dysphagia mechanical diet Chronic iron deficiency anemia currently stable Seizure disorder -Continue outpatient medication lamotrigine GERD - Continue home medication Protonix Hyperlipidemia -Continue Lipitor Depression -Continue medication trazodone Glaucoma -Continue outpatient latanoprost drops Hypothyroidism - Continue medication levothyroxine Chronic Pain -Continue outpatient medication gabapentin Disposition: The patient is progressing well and is returning back to her baseline mental status. The patient seems to be improving significantly and if her procalcitonin continues to trend down the way has been, the patient will most likely be able to be discharged home in the next 1-2 days on oral antibiotics. Many of the patient's home medications were restarted today as she is now clinically stable. CODE STATUS: DO NOT RESUSCITATE, DO NOT INTUBATE. Limited intervention includes comfort care only with antibiotics and artificial nutrition as needed. DVT PE prophylaxis: SubQ heparin Q8H Contact: Carla patient's daughter and DPOA at [phone] Stepdaughter Sanam VTE Prophylaxis: Sub-Q Heparin (Unfractionated) Resuscitation Status: DNR/DNI:Do Not Resuscitate/Intubate (DO NOT RESUSCITATE with limited intervention) Amalia Marks DO Jan 12, 2017 16:35
--- NOTE | 2017-01-12 18:29 | NUR ---
ACTIVITY Patient is alert and oriented X 1 only. On O2 at 2 LPM via NC. Denies pain. Tolerating liquids PO and her diet well. Denies nausea. No emesis noted. Denies SOB. Patient has been able to ambulate in the room and sat in the chair for breakfast. She has been up multiple times to the BSC with 1 PA. Refused PT. [place] alarm is on for safety.
[2017-01-12] MEDS: Ondansetron 2 mg/mL 2 mL Inj IVPUSH PRN (20:05)
--- NOTE | 2017-01-12 22:38 | PROG NOTE ---
[address] [address] PROGRESS NOTE PATIENT: ROBB CARLSON : 1940 MR#: [id number] ADMIT: 01/10/2017 JOB ID: [id number] DATE: 01/12/2017 REASON FOR FOLLOWUP: Aspiration pneumonia. INTERVAL HISTORY: Recall that this is the elderly woman who was sent here from [place] with possible pneumonia and/or possible UTI. She had been started on levofloxacin at [facility] and received it for a couple days but had a progressively abnormal mental status and so was admitted here. When she was admitted, I was asked to see her in consult back on the and she does not seem to be terribly toxic in any way, but she did have a very elevated procalcitonin and a chest x-ray which was suggestive of some degree of infiltrate which may have been secondary to aspiration. Urinary tract infection did not seem to be likely at all, though it is possible it had already been improved by the antibiotic she received at [place]. In any event, we decided to give her some Zosyn as a single agent aimed at both possible pulmonary and/or urinary tract infection. Over the past couple of days, the patient has improved in terms of the mental status as she is more alert, but she is now becoming quite anxious and to some degree paranoid. She states she has no idea where she is and she is troubled by the all the unfamiliar people coming into her room. She hopes she can get back to [facility] very soon. She denies fevers, chills, or significant cough and, in fact, she states her cough is improved. No abdominal pain, nausea or vomiting either. No skin rash. LABORATORIES: Include white count of 5300, normal diff, creatinine 0.84. LFTs normal. Procalcitonin down to 4.5. Urinalysis 0-5 white cells. Micro studies include C. diff that was just done today which is negative. Other studies included influenza screen that was negative. Nasopharyngeal PCR panel negative. MRSA screen negative and blood cultures negative. Our chest x-ray showed possible bilateral infiltrates and atelectasis versus infection. IMPRESSION: This patient continues to improve and looks nontoxic. She has underlying dementia and is understandably nervous in this new environment but, in general, she looks nontoxic from an infectious point of view. Her procalcitonin is coming down but still remains quite elevated. RECOMMENDATIONS: 1. I would continue with Paulette to complete probably a seven day course. This could be completed back at [facility]. 2. We should check procalcitonins every couple of days to make sure it continues to drop. 3. Will continue to follow this patient with you.
[2017-01-13] MEDS: Piperacillin-Tazo 3.375 Gm Inj 3.375 GM in Dextrose 5% Minibag Plus 50 ML IV SCH ×2 (00:30→08:20)
[2017-01-13] MEDS: Heparin 5,000 Unit/mL Inj SUBQ SCH ×2 (00:57→10:26)
--- NOTE | 2017-01-13 02:40 | NUR ---
Nausea At beginning of shift patient complained of nausea. 4mg Zofran IVP was given. Patient has denied any nausea since. Continues to be alert to self only. Will continue to monitor, and continue Q 1 hour checks.
--- NOTE | 2017-01-13 03:34 | NUR ---
Antibiotic Prior to shift change, pt had lost IV. Day shift nurse alerted IV therapy and new IV was placed. Fluids were restarted on this shift; however, ABX that had been infusing prior to loss of IV was not restarted at the same time. Pharmacy notified, and states to finished running the already hung abx, non-admin the 0030 dose, and the next dose at 0830 would be given. Care continues.
[2017-01-13] MEDS: 0.9% Sodium Chloride 1,000 ML IV SCH ×2 (04:03→12:05)
[2017-01-13 04:53] VITALS: BP 158/88; PULSE 69; RESP 18; O2SAT 94
[2017-01-13] MEDS: Fluticasone 0.05% 15 Spray/2 Gm 16 Gm Nasal Spray NASAL SCH (08:19)
[2017-01-13] MEDS: Pt Own Med->RESTASIS BOTH_EYES SCH (08:19)
[2017-01-13] MEDS: Ondansetron 2 mg/mL 2 mL Inj IVPUSH PRN (08:19)
[2017-01-13 08:44] VITALS: BP 180/89; PULSE 64; RESP 16; O2SAT 95
[2017-01-13 08:49] VITALS: PULSE 66; RESP 20; O2SAT 93
[2017-01-13] MEDS: lamoTRIgine 100 mg Tablet PO SCH (09:49)
[2017-01-13] MEDS: Dipyridamole-Aspirin 200-25 mg ER12 Capsule PO SCH (09:49)
[2017-01-13] MEDS: Pantoprazole 20 mg ER24 Tablet PO SCH (09:50)
[2017-01-13] MEDS ORDERED: Sodium Chloride LOK Flush 10 mL Syringe IVFLUSH PRN ×2 (10:30)
[2017-01-13 11:01] VITALS: BP 154/86; PULSE 65
[2017-01-13] MEDS ORDERED: HYDR25TA4 PO (13:18)
[2017-01-13] MEDS ORDERED: LEVO750T9 PO (13:18)
--- NOTE | 2017-01-13 13:24 | PCM.DIMED ---
Discharge Instructions Date of Service Jan 13, 2017 Dates of Hospitalization Jan 10, 2017 at 02:03 Discharge Diagnosis Discharge Diagnosis Hospital-acquired pneumonia UTI failed outpatient therapy Acute encephalopathy Uncontrolled hypertension Dementia Dysphagia Medication Instructions You have been prescribed Levaquin 750 mg to be taken daily. Please start this medication tomorrow 01/14/17 as you already got your daily dose of medication for today. Diet Other (dysphagia mechanical diet) Activity No restrictions (gradually return to normal daily activities) Call your provider Fever or Chills, Shortness of breath, Bleeding, Chest pain, Weakness (unilateral ) Patient Instructions Follow-up Provider: Albert Johns MD Follow-up with PCP in: 1 week Amalia Marks DO Jan 13, 2017 13:24
--- NOTE | 2017-01-13 13:25 | PCM.DC.MED ---
Discharge Summary Date of Service Jan 13, 2017 Dates of Hospitalization Date of Hospital Admission Jan 10, 2017 at 02:03 Date of Discharge: Jan 13, 2017 Providers: Admitting Physician: Christina Aguilar DO Primary Care Physician: Albert Johns MD Attending Physician: Christina Aguilar DO Diagnosis at Time of Discharge Diagnosis at Time of Discharge Hospital-acquired pneumonia UTI failed outpatient therapy Acute encephalopathy Uncontrolled hypertension Dementia Dysphagia Brief History This is a 76 y/o F resident of [facility] with a hx of dysphagia, dementia, seizure disorder, anemia, hypothyroidism, hyperlipidemia, and COPD. Patient was diagnosed with UTI and chest x-ray indicating pneumonia having spiked a fever 103 Fahrenheit on Monday01/07/2017. Patient was placed on antibiotic Levaquin as an outpatient. However patient's symptoms failed to improve and worsened over the past 3 days and she presented to [facility] with symptoms of altered mental status, productive cough, subjective fever of 102, and chills. Staff at [facility] reported patient having episodes of hypoxia one week ago. Staff noticed altered mental status today and the pt was sent to the ED. patient has a history of confusion with urinary tract infections. CXR in the ED as read by ED physician showed left-sided infiltrate. UA had trace leukocyte esterase and small amount of blood otherwise negative. Patient's daughter Carla LYON is present in the room and was primary historian. She states that her mother has denied sore throat, sweats, dysuria, headaches, body aches. Limited interventions include no intubation no chest compressions comfort care with antibiotics and trials of artificial nutrition if needed for short time. In the ED patient received ceftriaxone 1000 mg once, vancomycin, Zosyn 3.375 mg once. Hemogram showed: H/H 10.9/34.3, the PVCs 9.8 with 81.6% PMNs, platelets 147 Chemistry panel within normal limits with exception of mildly elevated glucose of 106 Lactic acid 0.9 Troponin was 0.010 procalcitonin of 11.75, proBNP of 3286 UA significant for: Dark yellow hazy urine with trace protein, small blood, trace leukocyte esterase otherwise negative UA . Urine culture pending Blood cultures 2 pending EKG showed sinus rhythm with a rate of 65, normal axis, QTC prolonged at 520, T- wave inversion in aVR and V1. No ST segment changes no T wave elevation. As read by this physician Vital signs in the ED: Temperature 37.2, pulse 68, respiratory rate 20, blood pressure 127/63, 93% on 4 L NC. Hospital Course A 76-year-old female with past medical history of UTI, dysphagia, anemia, hypothyroidism, COPD, seizure disorder and hyperlipidemia who presented with failed outpatient treatment on Levaquin for pneumonia diagnosed by chest x-ray on 01/07/2017 as well as altered mental status. Patient was admitted for pneumonia and altered mental status. Patient presented with altered mental status secondary to pneumonia and a UTI. The patient has responded well to antibiotic therapy with Zosyn. The patient is now clinically stable and will be discharged home on Levaquin. Infectious disease was following this patient and agrees with this plan this was discussed with Dr. Diane. The patient's blood pressure seems to be uncontrolled and her hydrochlorothiazide was increased to 50 mg twice a day. The patient was having some bouts of dizziness with these of propanolol and his medication has been stopped. The patient is being sent back to her residence in stable condition. Please see hospital course below: Pneumonia, HCAP, Present on Admission, active -Blood cultures negative 24 hours -Urine culture shows Mixed urogenital sydni but negative for strep pneumonia -MRSA screen negative -Negative troponin -Elevated procalcitonin lactic acid within normal limits -Viral PCR negative - Influenza screen negative -Elevated BNP 3286 -Continue Zosyn UTI failed outpatient treatment -Continue Zosyn as recommended by infectious disease -Infectious disease following (Dr. Diane) Acute encephalopathy present on admission (resolving) - Likely secondary to pneumonia vs iatrogenic -Patient is starting to return back to her normal baseline status continue with treatment of pneumonia and UTI Hypertension (uncontrolled) -Discontinue propranolol -1 time dose of labetalol 20 mg IV -Increase hydrochlorothiazide to 50 mg daily -Continue to monitor Dementia -Continue outpatient medication Nuedexta -PT/OT/speech eval Dysphagia -Speech and swallow evaluation with confirmation of dysphagia mechanical diet Chronic iron deficiency anemia currently stable Seizure disorder -Continue outpatient medication lamotrigine GERD - Continue home medication Protonix Hyperlipidemia -Continue Lipitor Depression -Continue medication trazodone Glaucoma -Continue outpatient latanoprost drops Hypothyroidism - Continue medication levothyroxine Chronic Pain -Continue outpatient medication gabapentin Disposition: The patient is progressing well and is returning back to her baseline mental status. The patient seems to be improving significantly and if her procalcitonin continues to trend down the way has been, the patient will most likely be able to be discharged home in the next 1-2 days on oral antibiotics. Many of the patient's home medications were restarted today as she is now clinically stable. CODE STATUS: DO NOT RESUSCITATE, DO NOT INTUBATE. Limited intervention includes comfort care only with antibiotics and artificial nutrition as needed. DVT PE prophylaxis: SubQ heparin Q8H Contact: Carla patient's daughter and DPOA at [phone] Stepdaughter Sanam Exam Vital Signs (Last) Date Time Temp Pulse Resp B/P Pulse Ox O2 Delivery O2 Flow Rate FiO2 01/13/17 11:01 65 154/86 01/13/17 08:49 20 93 Room Air 01/13/17 08:44 36.3 2.00 01/12/17 14:59 97 Exam Physical Exam: GEN: Patient was awake, alert, responding appropriately to questions HEENT: Pupils equal round and reactive to light, extraocular eye muscles intact , Neck soft supple, trachea midline, nomocephalic/atraumatic CV: +S1/S2, regular rate and rhythm, no murmurs auscultated Respiratory: CTAB, no wheezes, rales, rhonchi GI: +bowel sounds x4, soft, compressible, nontender to palpation EXT: no clubbing, cyanosis, edema Neuro: Cranial nerves II-XII grossly intact Psych: mood and affect were appropriate and back to patient's baseline mentation Test 01/09/17 23:55 01/10/17 00:30 01/10/17 05:12 01/10/17 08:40 Prothrombin Time 11.6sec (8.1-12.5) Prothromb Time International Ratio 1.08ratio Activated Partial Thromboplast Time 37.1sec (22.8-33.0) Troponin T < 0.010ug/L (0.0-0.011) Pro-B-Type Natriuretic Peptide 3286pg/mL (0-738) Urine Color Dark yellow (YELLOW) Urine Appearance Hazy (CLEAR,HAZY) Urine pH 6.5 (5.0-8.0) Urine Specific [place] 1.025 (1.003-1.035) Urine Protein Tracemg/dL (NEG,TRACE) Urine Glucose (UA) Negativemg/dL (NEGATIVE) Urine Ketones Negativemg/dL (NEGATIVE) Urine Occult Blood Small (NEGATIVE) Urine Nitrite Negative (NEGATIVE) Urine Bilirubin Negative (NEGATIVE) Urine Urobilinogen Normalmg/dL (NORMAL) Urine Leukocyte Esterase Trace (NEGATIVE) Urine RBC 0-2/hpf (0-2) Urine WBC 0-5/hpf (0-5) Urine Epithelial Cells Few/hpf (NONE-MOD) Urine Crystals None seen (NONE SEEN) Urine Bacteria None/hpf (NONE-FEW) Urine Hyaline Casts None/lpf (NONE) Urine Granular Casts None seen (NONE SEEN) Urine Waxy Casts None seen (NONE SEEN) Urine Red Blood Cell Casts None seen (NONE SEEN) Urine White Blood Cell Casts None seen (NONE SEEN) Urine Mucus None seen (None Seen) Urine Trichomonas None seen (NONE SEEN) Urine Yeast None (NONE SEEN) Urine Culture Reflexed Indicated Urine Legionella pneumophilia Ag Negative (Negative) Magnesium Level 1.8mg/dL (1.6-2.6) Hold Urine Received (Received) Test 01/11/17 05:58 01/11/17 11:35 01/12/17 05:33 01/13/17 05:30 Neutrophils (%) (Auto) 72.4% (40-74) Lymphocytes (%) (Auto) 11.6% (14-46) Monocytes (%) (Auto) 15.2% (4-12) Eosinophils (%) (Auto) 0.4% (0-5) Basophils (%) (Auto) 0.3% (0-3) Lactic Acid Level 1.1mmol/L (0.4-2.0) Vancomycin Level Trough < 2.3mcg/mL White Blood Count 5.3th/mm3 (3.8-10.1) Red Blood Count 3.43mil/mm3 (3.90-5.20) Hemoglobin 10.7g/dL (12.0-15.6) Hematocrit 33.4% (35.0-46.0) Mean Corpuscular Volume 97.4fL (81-100) Mean Corpuscular Hemoglobin 31.2pg (27.0-35.0) Mean Corpuscular Hemoglobin Concent 32.0% (32.0-37.0) Red Cell Distribution Width 13.8% (12.3-15.4) Platelet Count 166bil/L (150-400) Sodium Level 141mEq/L (134-144) Potassium Level 3.6mEq/L (3.5-5.2) Chloride Level 108mEq/L (97-108) Carbon Dioxide Level 21mmol/L (18-29) Blood Urea Nitrogen 14mg/dL (8-27) Creatinine 0.84mg/dL (0.57-1.00) Estimat Glomerular Filtration Rate 94mL/min (>59) Glucose Level 91mg/dL (60-99) Calcium Level 8.4mg/dL (8.5-10.1) Total Bilirubin 1.0mg/dL (0.0-1.2) Aspartate Amino Transf (AST/SGOT) 23U/L (0-50) Alanine Aminotransferase (ALT/SGPT) 13U/L (0-32) Alkaline Phosphatase 86U/L (25-165) Total Protein 4.9g/dL (6.4-8.4) Albumin 2.7g/dL (3.4-5.0) Procalcitonin 3.08ng/mL (0.00-0.08) Discharge Medications Discharge Medications Aspirin/Dipyridamole (Aspirin-Dipyridam ER 25-200 mg) 25 Mg-200 Mg Cpmp.12hr 1 TAB PO BID (Reported) Atorvastatin Calcium (Atorvastatin Calcium) 10 Mg Tablet 10 MG PO HS (Reported) Cholecalciferol (Vitamin D3) (Vitamin D3) 4,000 Unit Capsule 4,000 UNIT PO DAILY (Reported) Citalopram (Citalopram) 20 Mg Tablet 20 MG PO DAILY (Reported) Clobetasol Propionate/Emoll (Clobetasol Emollient 0.05% Crm) 15 Gm Cream..g. 1 APPL TOP BID (Reported) Cyclosporine (Restasis) 1 Each Droperette 1 EACH BOTH_EYES BID (Reported) Dextromethorphan HBr/Quinidine (Nuedexta 20-10 mg Capsule) 1 Each Capsule 1 EACH PO BID (Reported) Fentanyl 12.5 mcg/hr Patch (Fentanyl 12.5 mcg/hr Patch) 1 Each Patch.td72 1 PATCH TRANSDERM Q3D (Reported) Fluticasone Propionate (Flonase Allergy Relief) 50 Mcg/Actuation [place].susp 2 SPR NS DAILY (Reported) Folic Acid (Folic Acid) 1 Mg Tablet 1 MG PO DAILY (Reported) Gabapentin (Gabapentin) 300 Mg Capsule 300 MG PO BID (Reported) Hydrochlorothiazide (Hydrochlorothiazide) 25 Mg Tablet 50 MG PO 829, Prescribed by: MAME DYKES DO Hydroxychloroquine Sulfate (Hydroxychloroquine Sulfate) 200 Mg Tablet 200 MG PO DAILY (Reported) Lamotrigine (Lamotrigine) 200 Mg Tablet 200 MG PO BID (Reported) Latanoprost (Latanoprost) 2.5 Ml Drops 1 GTT BOTH_EYES HS (Reported) Levofloxacin (Levaquin) 750 Mg Tablet 750 MG PO DAILY please start this medication on 01/14/17 Prescribed by: MAME DYKES DO Levothyroxine (Levothyroxine) 100 Mcg Tablet 100 MCG PO DAILY (Reported) Magnesium Oxide (Mag-Oxide) 400 Mg Tablet 400 MG PO BID (Reported) Pantoprazole DR (Protonix) 20 Mg Tablet 20 MG PO DAILY (Reported) Thiamine Mononitrate (Vitamin B-1) 100 Mg Tablet 100 MG PO DAILY (Reported) Trazodone (Trazodone) 50 Mg Tablet 50 MG PO HS (Reported) As needed Acetaminophen (Acetaminophen) 325 Mg Capsule 325-650 MG PO Q4H PRN PRN PRN ( Reported) Butalbital/Aspirin/Caff 50-325-40 mg (Fiorinal 50-325-40 mg) 1 Each Capsule 1 CAPSULE PO [id number] PRN PRN For Headache (Reported) Calcium Carbonate (Tums) 500 Mg Tab.chew 500 MG PO q6 hours PRN PRN For Dyspepsia or Heartburn (Reported) Guaifenesin/Dextromethorphan (Ofe-Tussin Dm Syrup) 100 Mg-10 Mg/5 Ml Syrup 10 ML PO Q6H PRN PRN PRN (Reported) Guaifenesin/Dextromethorphan (Robitussin Cough-Chest Dm Liq) 100 Mg-5 Mg/5 Ml Liquid 10 ML PO q6 hours PRN PRN For Cough (Reported) Ipratropium/Albuterol Sulfate (Iprat-Albut 0.5-3(2.5) mg/3 mL Inhalant Soln) 3 Ml Ampul.neb 3 ML IH Q6 PRN PRN For Shortness of Breath (Reported) Lactase (Lactaid) 3,000 Unit Tablet 1-2 TABLET PO DAILY PRN PRN dairy use ( Reported) Loperamide (Loperamide) 2 Mg Capsule 2 MG PO q6 hours PRN PRN For Diarrhea or Loose Stool (Reported) Miconazole (Miconazole) 5 Gm Powder 1 APPLIC TOPICAL PRN PRN PRN rash (Reported ) Ondansetron ODT (Zofran ODT) 4 Mg Tablet 4 MG PO Q4H PRN PRN For Nausea ( Reported) Tramadol (Tramadol) 50 Mg Tablet 25-50 MG PO q8 hours PRN PRN For Pain (Reported ) Additional med instructions You have been prescribed Levaquin 750 mg to be taken daily. Please start this medication tomorrow 01/14/17 as you already got your daily dose of medication for today. Followup Plan Discharge Diet: Other (dysphagia mechanical diet) Discharge Activity: No restrictions (gradually return to normal daily activities) Follow-up Provider: Albert Johns MD Follow-up with PCP in: 1 week Time spent Greater than 35 copies to: Albert Johns MD, Precious L DO Jan 13, 2017 13:25
[2017-01-13] MEDS ORDERED: Ertapenem Inj 1,000 MG in 0.9% Sodium Chloride 50 ML IV SCH (14:00)
--- NOTE | 2017-01-13 14:20 | NUR ---
Faxed [facility] form to [facility] for car pick up driver at 1600 in room and patient will need to go with O2 from hospital. Updated PROTEIN CHEMIST
--- NOTE | 2017-01-13 14:49 | NUR ---
Social Work-discharge: Data & Assessment: EMR Reviewed. Pt is on day 3 of hospitalization for pneumonia per H&P. Pt is medically stable for discharge at this time. SW spoke with pt's daughter, Carla [phone] , and she is in agreement with patient returning to [facility]. SW updated Marisela at [facility] and she is aware that the patient will be transported via cabulance at 4pm. SW will continue to follow. Plan: Pt to discharge back to [facility] via Medicaid transportation. Pt is a shelter care pt there. SW will continue to follow. Lexis Nicole LMSW, ACRocael
--- NOTE | 2017-01-13 15:29 | PROG NOTE ---
[address] [address] PROGRESS NOTE PATIENT: ROBB CARLSON : 1940 MR#: [id number] ADMIT: 01/10/2017 JOB ID: [id number] DATE: 01/13/2017 REASON FOR FOLLOWUP: Elevated procalcitonin in a patient with probable underlying aspiration-type pneumonia and/or urinary tract infection. INTERVAL HISTORY: Recall this is the patient who was sent here from [place], who was felt to have either UTI, pulmonary infection or both. She had been treated for a couple days at [place] with levo but did develop increasing abnormal mental status as well as some fever perhaps and it was thought she is failing antibiotics for serious infection. She was transferred here and evaluated and treated for the last three days or so with Zosyn. On this therapy, she is much improved in terms of her mental status and she has had no fevers. An extensive workup for sources of infection here has really been negative including cultures of blood and urine and a stool for C. diff, but we did have a very high procalcitonin when she first came in which was almost 12. It has declined over the last four days and now has reached three, so it is down 75%. Yesterday, when I saw the patient, she was paranoid and a bit confused. Today she is much more calm and tells me she is at [facility] and looking forward to being transferred back to [place]. She said she is thankful she would not the PICC line which has been rumored to be on the schedule today, but when I speak to the nurses, they tell me she is in fact receiving a PICC line to complete what I had recommended which was a seven-day course of Zosyn going through Monday the . The patient today states she has no fevers, no chills. No cough, no shortness of breath. No sore throat, nausea, or vomiting. PHYSICAL EXAMINATION: Reveals an afebrile woman, temp 36.3, pulse 65, respiratory rate 20, blood pressure 154/86. She is saturating quite well and very comfortable today. Oral cavity with one shallow oral ulcer which the patient showed me at the anterior base of the left gingiva. The lungs are relatively clear. Cardiac tones without new murmur. Abdomen benign. No skin rash. She has a peripheral IV. LABORATORIES: Include white count 5300. Normal diff. Platelets normal, 166. Creatinine 0.84. Procalcitonin as noted is down to 3 from 12, four days ago. LFTs completely normal. Urinalysis had no pyuria and was culture negative. Also negative blood cultures, urine, and Legionella antigen and a C. diff. IMAGING: Showed patchy bibasilar infiltrates with a poor inspiratory effort. That was done three days ago. IMPRESSION: I have been unimpressed over the last three or four days that this patient has any significant infection but have been a bit perplexed by the story of fever and possibly mental status changes at [facility] prior to her transfer here. Since admission here, she has been quite clear mentally except for yesterday's paranoid episode which supposedly goes along with her history of longstanding mozo-qk-qwzmtmep dementia. She has never appeared very infected, to my eye, either from urinary or respiratory tract source. I have recommended we continue Zosyn through the to complete a one-week course of therapy for whatever was going on at [place], which was presumably a bacterial infection based on the high procalcitonin when she arrived here. I do not think a PICC line is indicated though to complete three days of therapy in this elderly woman. The nurses tell me if she had a PICC line, she would likely need to be restrained to keep from pulling it out and I just do not see the indication for such aggressive intervention in an elderly woman. If we could use a peripheral IV, I think Zosyn for three more days would be reasonable though. RECOMMENDATIONS: 1. Let us cancel the PICC line. 2. Will give the patient one dose of ertapenem today before her transfer back to [place]. 3. She can complete three additional doses of oral levofloxacin after she returns to [place] and will call that good for antibiotic therapy. 4. ID will go ahead and sign off at this time. Thank you very much. 5. I have discussed this with the nurses and written an order to cancel the PICC.
[2017-01-13 17:00] VITALS: PULSE 66; O2SAT 93
--- NOTE | 2017-01-13 17:13 | NUR ---
DISCHARGE Patient denies pain. Tolerating liquids PO and his diet well. Denies nausea. No emesis noted. PO2 on RA-93 %. Denies SOB. Patient has been able to transfer in her room with SBA and the FWW. She sat in the chair for lunch. Tolerated activity well. IV saline lock d/cd. Discharge report given to CHRISTELLE Gamez in [facility]. Discharged to home via cabulance.
== END 2017-01-13 17:01 | DRG 193 ==
LOC: EDBD 22:32 → SED 22:32 → OSC 01-10 02:03
PROVIDERS: ADMIT Internal Medicine; ATTEND Internal Medicine
DX: J18.9 Pneumonia, unspecified organism (principal); G93.40 Encephalopathy, unspecified; N39.0 Urinary tract infection, site not specified; D50.9 Iron deficiency anemia, unspecified; H40.9 Unspecified glaucoma; G89.29 Other chronic pain; G40.909 Epilepsy, unspecified, not intractable, without status epilepticus; E03.9 Hypothyroidism, unspecified; R13.10 Dysphagia, unspecified; K21.9 Gastro-esophageal reflux disease without esophagitis; E78.5 Hyperlipidemia, unspecified; F03.90 Unspecified dementia, unspecified severity, without behavioral disturbance, psychotic disturbance, mood disturbance, and anxiety; Z87.891 Personal history of nicotine dependence